=== PATIENT | female | born 1995 | race Hispanic/Latino ===

== ENCOUNTER 2018-12-01 22:49 | Emergency (ER) | payer BC, SELFPAY ==
[2018-12-01 23:45] LABS: Absolute Lymphocytes (CBC) 2.8 K/uL (0.7-4.9); Absolute Monocytes 0.6 K/uL (0.1-1.3); Absolute Neutrophil 6.1 K/uL (1.8-8.0); Basophils % 0.8 % (0-1.3); Eosinophils % 1.3 % (0-4.4); Hematocrit 42.5 % (36.0-45.0); Lymphocytes % 28.9 % (15.3-44.8); MPV 8.6 fL (7.6-11.3); Monocytes % 6.1 % (3.3-12.3); RBC Red Blood Cell Count 4.78 M/uL (3.86-4.86)
[2018-12-01] MEDS ORDERED: MAGNE/ALUM HYDROXD 30 ML UCUP ONE (23:55)
[2018-12-01] MEDS ORDERED: LIDOCAINE VISCOUS 2% SOLN 15 ML UDC ONE (23:56)
[2018-12-02 00:02] LABS: ALT/SGPT 43 U/L (12-78); AST/SGOT 25 U/L (15-37); Albumin 3.6 g/dL (3.4-5.0); Alkaline Phosphatase 178 U/L (45-117); BUN Blood Urea Nitrogen 12 mg/dL (7-18); Bicarbonate 26 mmol/L (21-32); Bilirubin Direct < 0.1 mg/dL (0-0.2); Bilirubin Total 0.3 mg/dL (0.2-1.0); Glucose Level 110 mg/dL (74-106); Lipase 108 U/L (73-393); Potassium 3.6 mmol/L (3.5-5.1); Protein, Total 7.4 g/dL (6.4-8.2); Sodium Level 142 mmol/L (136-145)
--- NOTE | 2018-12-02 00:50 | ER ---
Nurse's Notes [facility] Name: Marquita Gannon Age: 23 yrs Sex: Female : 1995 Arrival Date: 12/01/2018 Time: 22:50 Bed 23 Private MD: Diagnosis: Acute gastritis without bleeding Presentation: 12/01 22:59 Presenting complaint: Patient states: i have epigastric pain with nausea since Friday. mg2 i took pepto and was relieved for awhile. Transition of care: patient was not received from another setting of care. Onset of symptoms was November 29, 2018. Risk Assessment: Do you want to hurt yourself or someone else? Patient reports no desire to harm self or others. Initial Sepsis Screen: Does the patient meet any 2 criteria? No. Patient's initial sepsis screen is negative. Does the patient have a suspected source of infection? No. Patient's initial sepsis screen is negative. Care prior to arrival: Medication(s) given: toradol 30 mg IV. 22:59 Method Of Arrival: Ambulatory mg2 22:59 Acuity: EMEKA 3 mg2 Triage Assessment: 23:53 General: Appears in no apparent distress. comfortable, Behavior is calm, cooperative. mg2 Pain: Complains of pain in epigastrium Pain radiates to umbilical area Pain currently is 2 out of 10 on a pain scale. Quality of pain is described as aching, Pain began gradually, Is intermittent. EENT: No signs and/or symptoms were reported regarding the EENT system. Neuro: Level of Consciousness is awake, alert, obeys commands, Oriented to person, place, time, situation. Cardiovascular: Capillary refill < 3 seconds Patient's skin is warm and dry. Respiratory: Airway is patent Respiratory effort is even, unlabored, Respiratory pattern is regular, symmetrical. GI: Abdomen is round non-distended, Abd is soft and non tender Reports epigastric pain. : No signs and/or symptoms were reported regarding the genitourinary system. : Urine is clear. Derm: Skin is intact, is healthy with good turgor, Skin is pink, warm \T\ dry. normal. Musculoskeletal: Circulation, motion, and sensation intact. Capillary refill < 3 seconds. 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 - Social history:: Smoking status: Patient/guardian denies using tobacco, Patient uses alcohol, weekly. Patient/guardian denies using street drugs, IV drugs. - Ebola Screening: : No symptoms or risks identified at this time. Screenin:55 Abuse screen: Denies threats or abuse. Denies injuries from another. Nutritional mg2 screening: No deficits noted. Tuberculosis screening: No symptoms or risk factors identified. Fall Risk IV access (20 points). Assessment: 23:55 Reassessment: pls see triage assessment. mg2 23:56 GI: Bowel sounds present X 4 quads. Abd is soft and non tender. mg2 12/02 01:04 Reassessment: Patient denies pain at this time. Patient states feeling better. mg2 Vital Signs: 12/01 23:02 BP 112 / 68; Pulse 87; Resp 18; Temp 97.5(TE); Pulse Ox 100% on R/A; Weight 138.35 kg; mg2 Height 5 ft. 5 in. (165.10 cm); Pain 2/10; 12/02 01:04 BP 120 / 78; Pulse 80; Resp 18; Pulse Ox 100% on R/A; Pain 0/10; mg2 12/01 23:02 Body Mass Index 50.75 (138.35 kg, 165.10 cm) mg2 ED Course: 12/01 22:50 Patient arrived in ED. am2 22:50 Taye Del Cid RN is Primary Nurse. mg2 23:01 Joe Fisher PA is PHCP. jr8 23: Juan C Goodson MD is Attending Physician. jr8 23:02 Triage completed. mg2 23:04 Arm band placed on. mg2 23:55 No provider procedures requiring assistance completed. Inserted saline lock: 20 gauge mg2 in left antecubital area, using aseptic technique. Blood collected. 23:56 Patient has correct armband on for positive identification. Door closed. Warm blanket mg2 given. 12/02 00:49 Jaime Pa MD is Referral Physician. jr8 01:04 IV discontinued, intact, bleeding controlled, No redness/swelling at site. Pressure mg2 dressing applied. Administered Medications: 12/01 23:47 Drug: GI Cocktail without - (Maalox Suspension 30 ml, Lidocaine Liquid 2 % 15 mg2 ml) Route: PO; 12/02 00:09 Follow up: Response: No adverse reaction; Marked relief of symptoms mg2 Outcome: 00:49 Discharge ordered by MD. shelton 01:05 Discharged to home ambulatory, with family. mg2 01:05 Condition: improved 01:05 Discharge instructions given to patient, family, Instructed on discharge instructions, follow up and referral plans. medication usage, Demonstrated understanding of instructions, follow-up care, medications, Prescriptions given X 1. 01:05 Patient left the ED. mg2 Signatures: Joe Fisher PA PA jr8 Jenny Marx am2 Taye Del Cid, RN RN mg2 Corrections: (The following items were deleted from the chart) 12/01 23:57 22:59 Care prior to arrival: None. mg2 mg2
--- NOTE | 2018-12-02 00:50 | EDPHYS ---
Physician Documentation [facility] Name: Marquita Gannon Age: 23 yrs Sex: Female : 1995 Arrival Date: 12/01/2018 Time: 22:50 Bed 23 Private MD: ED Physician Juan C Goodson HPI: 12/01 23:28 This 23 yrs old Female presents to ER via Ambulatory with complaints of jr8 Abdominal Pain - radiating to back. 23:28 The patient presents with abdominal pain in the epigastric area. Onset: The jr8 symptoms/episode began/occurred acutely, 1 day(s) ago. The symptoms radiate to back. Associated signs and symptoms: Pertinent positives: nausea. The symptoms are described as burning. Modifying factors: The symptoms are alleviated by nothing, the symptoms are aggravated by nothing. Severity of pain: At its worst the pain was moderate in the emergency department the pain has improved mildly. The patient has not experienced similar symptoms in the past. The patient has not recently seen a physician. 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 - Social history:: Smoking status: Patient/guardian denies using tobacco, Patient uses alcohol, weekly. Patient/guardian denies using street drugs, IV drugs. - Ebola Screening: : No symptoms or risks identified at this time. ROS: 23:28 Eyes: Negative for injury, pain, redness, and discharge, ENT: Negative for injury, jr8 pain, and discharge, Neck: Negative for injury, pain, and swelling, Cardiovascular: Negative for chest pain, palpitations, and edema, Respiratory: Negative for shortness of breath, cough, wheezing, and pleuritic chest pain, Back: Negative for injury and pain, MS/Extremity: Negative for injury and deformity, Skin: Negative for injury, rash, and discoloration, Neuro: Negative for headache, weakness, numbness, tingling, and seizure. 23:28 Abdomen/GI: Positive for abdominal pain, nausea, Negative for vomiting, diarrhea, abdominal cramps, abdominal distension, anorexia, dysphagia, hematemesis, black/tarry stool, rectal pain, rectal bleeding, bowel incontinence, flatulence. Exam: 23:28 Eyes: Pupils equal round and reactive to light, extra-ocular motions intact. Lids and jr8 lashes normal. Conjunctiva and sclera are non-icteric and not injected. Cornea within normal limits. Periorbital areas with no swelling, redness, or edema. ENT: Nares patent. No nasal discharge, no septal abnormalities noted. Tympanic membranes are normal and external auditory canals are clear. Oropharynx with no redness, swelling, or masses, exudates, or evidence of obstruction, uvula midline. Mucous membranes moist. Neck: Trachea midline, no thyromegaly or masses palpated, and no cervical lymphadenopathy. Supple, full range of motion without nuchal rigidity, or vertebral point tenderness. No Meningismus. Cardiovascular: Regular rate and rhythm with a normal S1 and S2. No gallops, murmurs, or rubs. Normal PMI, no JVD. No pulse deficits. Respiratory: Lungs have equal breath sounds bilaterally, clear to auscultation and percussion. No rales, rhonchi or wheezes noted. No increased work of breathing, no retractions or nasal flaring. Back: No spinal tenderness. No costovertebral tenderness. Full range of motion. Skin: Warm, dry with normal turgor. Normal color with no rashes, no lesions, and no evidence of cellulitis. MS/ Extremity: Pulses equal, no cyanosis. Neurovascular intact. Full, normal range of motion. Neuro: Awake and alert, GCS 15, oriented to person, place, time, and situation. Cranial nerves II-XII grossly intact. Motor strength 5/5 in all extremities. Sensory grossly intact. Cerebellar exam normal. Normal gait. 23:28 Abdomen/GI: Inspection: abdomen appears normal, Bowel sounds: active, all quadrants, Palpation: soft, in all quadrants, nontender, in the umbilical area, suprapubic area, right upper quadrant, left upper quadrant, right lower quadrant and left lower quadrant, mild abdominal tenderness, in the epigastric area, mass, is not appreciated, rebound tenderness, is not appreciated, voluntary guarding, is not appreciated, involuntary guarding, is not appreciated, no appreciated organomegaly, Indicators: McBurney's point is not tender, Leon's sign is negative, Rovsing's sign is negative, Liver: tenderness, is not appreciated. Vital Signs: 23:02 BP 112 / 68; Pulse 87; Resp 18; Temp 97.5(TE); Pulse Ox 100% on R/A; Weight 138.35 kg; mg2 Height 5 ft. 5 in. (165.10 cm); Pain 2/10; 12/02 01:04 BP 120 / 78; Pulse 80; Resp 18; Pulse Ox 100% on R/A; Pain 0/10; mg2 12/01 23:02 Body Mass Index 50.75 (138.35 kg, 165.10 cm) mg2 MDM: 12/01 23:01 Patient medically screened. [facility] 12/02 00:48 Data reviewed: vital signs, nurses notes, lab test result(s). Data interpreted: Pulse 8 oximetry: on room air is 100 %. Interpretation: normal. 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 Response to treatment: the patient's symptoms have resolved after treatment. 12/01 23:03 Order name: Basic Metabolic Panel; Complete Time: 00:12/01 23:03 Order name: CBC with Diff; Complete Time: 00:12/01 23:03 Order name: Creatinine for Radiology; Complete Time: 00:12/01 23:03 Order name: Hepatic Function; Complete Time: 00:12/01 23:03 Order name: Lipase; Complete Time: 00:30 12/01 23:26 Order name: Urine Dipstick--Ancillary (enter results) mw2 12/01 23:03 Order name: IV Saline Lock; Complete Time: 23:12/01 23:03 Order name: Labs collected and sent; Complete Time: 23:12/01 23:03 Order name: Urine Test (obtain specimen); Complete Time: 23:12/01 23:03 Order name: Urine Dipstick-Ancillary (obtain specimen); Complete Time: :12/01 23:26 Order name: Urine --Ancillary (enter results) mw2 Administered Medications: 12/01 23:47 Drug: GI Cocktail without - (Maalox Suspension 30 ml, Lidocaine Liquid 2 % 15 mg2 ml) Route: PO; 12/02 00:09 Follow up: Response: No adverse reaction; Marked relief of symptoms mg2 Disposition: 06:24 Co-signature as Attending Physician, Juan C Goodson MD I agree with the assessment and tw4 plan of care. Disposition: 12/02/18 00:49 Discharged to Home. Impression: Acute gastritis without bleeding. - Condition is Stable. - Discharge Instructions: Food Choices for Gastroesophageal Reflux Disease, Adult, Gastritis, Adult, Gastroesophageal Reflux Disease, Adult. - Prescriptions for omeprazole 40 mg Oral capsule,delayed release(DR/EC) - take 1 capsule by ORAL route once daily before a meal; 30 capsule. - Medication Reconciliation Form, Thank You Letter, Antibiotic Education, Prescription Opioid Use form. - Follow up: Jaime Pa MD; When: 5 - 6 days; Reason: Recheck today's complaints, Continuance of care, Re-evaluation by your physician. - Problem is new. - Symptoms have improved. Signatures: Dispatcher [employer] EDMS Joe Fisher PA PA jr8 Juan C Goodson MD MD tw4 Taye Del Cid RN RN mg2 Corrections: (The following items were deleted from the chart) 01:05 00:49 12/02/2018 00:49 Discharged to Home. Impression: Acute gastritis without mg2 bleeding. Condition is Stable. Forms are Medication Reconciliation Form, Thank You Letter, Antibiotic Education, Prescription Opioid Use. Follow up: Jaime Pa; When: 5 - 6 days; Reason: Recheck today's complaints, Continuance of care, Re-evaluation by your physician. Problem is new. Symptoms have improved. jr8
[2018-12-02 01:36] LABS: Urine Blood 1+ (NEG); Urine Glucose NEGATIVE (NEG); Urine Protein NEGATIVE (NEG); Urine Specific Gravity 1.025 (1.005-1.030)
[2018-12-02 02:23] VITALS: TEMP 97.5; O2SAT 100
[2018-12-02 02:24] VITALS: BP 120/78
== END 2018-12-02 01:05 | disposition home or self-care (01) ==
LOC: ER 22:49
DX: K29.00 Acute gastritis without bleeding (principal)
CPT/HCPCS: 36415; 80048; 80076; 81003; 81025; 83690; 85025; 99284

== ENCOUNTER 2019-06-27 17:08 | Emergency (ER) | payer BC ==
--- OUTSIDE RECORDS SUMMARY | 2019-06-27 17:10 | XMS REPORT ---
:1995 [facility] Address [address] [place] [address] Dr. Albright [address] [place] [id number] Care Team Providers Name Role Phone Unavailable Unavailable Unavailable Problems This patient has no known problems. Allergies, Adverse Reactions, Alerts This patient has no known allergies or adverse reactions. Medications This patient has no known medications.
--- OUTSIDE RECORDS SUMMARY | 2019-06-27 17:11 | XMS REPORT | Summary of Care ---
:1995 Author Organization [facility] Address [address] [place] [id number] Care Team Providers Name Role Phone Latisha Campbell [facility] Primary Care Provider Reason for Visit Reason Comments Well Woman Exam Encounter Details Date Type Department Care Team Description 05/04/2019 Office Visit [facility]- Latisha Campbell, Well woman exam (Primary Dx); [facility] Screen for STD (sexually transmitted disease); [address] Breakthrough bleeding on Nexplanon; [place], [place] Georgi A BMI 40.0-44.9, adult; [id number] [place] [id number] Candidiasis of skin [phone] Allergies No Known Allergiesdocumented as of this encounter (statuses as of 05/04/2019) Medications Medication Sig Dispensed Refills Start Date End Date Status estradiol 2 mg Take 1 tablet by 21 tablet 0 05/04/2019 05/25/2019 Active tabletIndications: mouth daily for Breakthrough bleeding 21 days. on Nexplanon documented as of this encounter (statuses as of 05/04/2019) Active Problems Problem Noted Date Nexplanon in place 01/13/2018 Nexplanon insertion 05/08/2017 Overview: Removal date 05/08/20 Morbid obesity, unspecified obesity type 04/23/2017 documented as of this encounter (statuses as of 05/04/2019) Resolved Problems Problem Noted Date Resolved Date Well woman exam with routine gynecological exam 04/23/2017 04/28/2018 Other general counseling and advice for contraceptive 04/23/2017 04/28/2018 management Need for HPV vaccine 04/23/2017 05/04/2019 documented as of this encounter (statuses as of 05/04/2019) Immunizations Name Administration Dates Next Due HPV9 02/24/2019, 04/28/2018, 04/23/2017 Meningococcal Polysaccharide (groups A, 03/06/2016 C, Y and W-135) conjugate vaccine (MCV4P) Tdap 10/06/2011 documented as of this encounter Social History Tobacco Use Types Packs/Day Years Used Date Never Smoker Smokeless Tobacco: Never Used Alcohol Use Drinks/Week oz/Week Comments Yes socially Sex Assigned at Date Recorded Not on file Job Start Date Occupation Industry Not on file Not on file Not on file Travel History Travel Start Travel End No recent travel history available. documented as of this encounter Last Filed Vital Signs Vital Sign Reading Time Taken Comments Blood Pressure 101/69 05/04/2019 9:21 AM CDT Pulse 72 05/04/2019 9:21 AM CDT Temperature 36.5 C (97.7 F) 05/04/2019 9:21 AM CDT Respiratory Rate 16 05/04/2019 9:21 AM CDT Oxygen Saturation - - Inhaled Oxygen Concentration - - Weight 119.9 kg (264 lb 4 oz) 05/04/2019 9:21 AM CDT Height 165.1 cm (5' 5") 05/04/2019 9:21 AM CDT Body Mass Index 43.97 05/04/2019 9:21 AM CDT documented in this encounter Patient Instructions Patient InstructionsSobeida Lu LVN - 05/04/2019 8:45 AM CDT Clinical Breast Exam Many health organizations recommend a yearly clinical breast exam. This exam may be done by a public health inspector, family healthcare provider, nurse practitioner, nurse herpetologist, or specially trained nurse. Yearly breast exams help tomake surethat breast conditions are found early. Your healthcare providers role A healthcare professional knows the tests and follow-up care needed if a problem is found. Your clinical exam is also a great time to ask questions about breast self-exams. You can find out if yourechecking your breasts in the best way. Or you may want to ask how , breast implants, or breast reduction surgery affect the way you should check your breasts. Diagnostic tests If a clinical exam reveals a breast change, you may have other tests to find out more. These tests may include: Mammography. A low-dose X-ray of your breast tissue. Ultrasound. An imaging test that uses sound waves to create images of your breast. Biopsy. A small amount of breast tissue is removed by needle or by a cut ( incision). The tissue is then checked under a microscope. Guidelines for having clinical breast exams The [employer] recommends that starting at age 29, you should have a clinical breast exam every 1 to 3 years. After age 40, have a clinical breast exam each year. If youre at higher risk for breast cancer, you may need exams more often. Risk factors for breast cancer may include: Being over 50 or postmenopausal Having a family history of breast cancer Having the BRCA1 or BRCA2 gene mutation or certain other gene mutations Having more menstrual periods due to starting menstruation early(before age 12) or having a late menopause (after age 55) Having no pregnancies Having a first after age 30 Being obese Having a history of radiation treatment to your chest area Exposure to JERONIMO during your mother's Not being active Drinking too much alcohol Having dense breast tissue Taking hormone therapy after menopause Other health organizations have different recommendations. Talk with your healthcare provider about what is best for you. Date Last Reviewed: 05/06/201719997650-4612 The [employer]. [address] [place] [address]. All rights reserved. This information is not intended as a substitute for professional medical care. Always follow your healthcare professional's instructions. Breast Health: Breast Self-Awareness What is breast self-awareness? Breast self-awareness is knowing how your breasts normally look and feel. Your breasts change as yougo through different stages of your life. So its important to learn what is normal for your breasts. Breast self-awareness helps you notice any changes in your breasts right away. Report any changesto your healthcare provider. Why is breast self-awareness important? Many experts now say that women should focus on breast self-awareness instead of doing a breast self-examination (BSE). These experts include the [employer], the U.S. Preventive Services Task Force, and the [employer]. Some experts even advise notteaching women to do a BSE. Thats because research hasnt shown a clear benefit to doing BSEs. Breast self-awareness is different than a BSE. Breast self-awareness isnt about following a certain method and schedule. Its about knowing what's normal for your breasts. That way you can notice even small changes right away. If you see any changes, report them to your healthcare provider. Changes to look for Call your healthcare provider if you find any changes in your breasts that concern you. These changes may include: A lump Nipple discharge other than breastmilk, especially a bloody discharge Swelling A change in size or shape Skin irritation, such as redness, thickening, or dimpling of the skin Swollen lymph nodes in the armpit Nipple problems, such as pain or redness If you find a lump Contact your provider if you find lumpiness in one breast, feel something different in the tissue, or feel a definite lump. Sometimes lumpiness may be due to menstrual changes. But there may be reason for concern. Your provider may want to see you right away if you have: Nipple discharge that is bloody Skin changes on your breast, such as dimpling or puckering Its normal to be upset if you find a lump. But its important to contact your provider right away. Remember that most breast lumps are benign. This means they are not cancer. Date Last Reviewed: 05/06/201719993370-8153 [employer]. [address] [place] [address], [place] [address]. All rights reserved. This information is not intended as a substitute for professional medical care. Always follow your healthcare professional's instructions. Prevention Guidelines,Women Ages 18 to 39 Screening tests and vaccines are an important part of managing your health. A screening test is doneto find possible disorders or diseases in people who don' t have any symptoms. The goal is to find a disease early so lifestyle changes can be made and you can be watched more closely to reduce the riskof disease, or to detect it early enough to treat it most effectively. Screening tests are not considered diagnostic, but are used to determine if more testing is needed. Health counseling is essential, too. Below are guidelines for these, for women ages 18 to 39. Talk with your healthcare provider tomake sure youre up-to- date on what you need. Screening Who needs it How often Alcohol misuse All women in this age group At routine exams Blood pressure All women in this age group Yearly checkup if your blood pressure is normal Normal blood pressure is less than 120/80 mm Hg If your blood pressure reading is higher than normal, follow the advice of your healthcare provider Breast cancer All women in this age group should talk with their healthcare providers about the needfor clinical breast exams (CBE)1 Clinical breast exam every 3 years1 Cervical cancer Women ages 21 and older Women between ages 21 and 29 should have a Pap test every 3 years; women between ages 30 and 65 are advised to have a Pap test plus an HPV test every 5 years Chlamydia Sexually active women ages 25 and younger, and women at increased risk for infection (suchas having multiple sex partners) Every year if you're at risk or have symptoms Depression All women in this age group At routine exams Type 2 diabetes, prediabetes All women with no symptoms who are overweight or obese and have 1 or more other risk factors for diabetes At least every 3 years. Also, testing for diabetes during after the 24th week. Type 2 diabetes, prediabetes All women diagnosed with gestational diabetes Lifelong testing every 3 years Type 2 diabetes All women with prediabetes Every year Gonorrhea Sexually active women at increased risk for infection At routine exams Hepatitis C Anyone at increased risk At routine exams HIV All women should be tested at least once for HIV between the ages of 13 and 64 At routine exams.Those with risk factors for HIV should be tested at least annually. Obesity All women in this age group At routine exams Syphilis Women at increased risk for infection should talk with their healthcare provider At routineexams Tuberculosis Women at increased risk for infection should talk with their healthcare provider Ask your healthcare provider Vision All women in this age group At least 1 complete exam in your 20s, and 2 in your 30s Vaccine2 Who needs it How often Chickenpox (varicella) All women in this age group who have no record of this infection or vaccine 2doses; the second dose should be given 4 to 8 weeks after the first dose Hepatitis A Women at increased risk for infection should talk with their healthcare provider 2 dosesgiven at least 6 months apart Hepatitis B Women at increased risk for infection should talk with their healthcare provider 3 dosesover 6 months; second dose should be given 1 month after the first dose; the third dose should be given at least 2 months after the second dose and at least 4 months after the first dose Haemophilus influenzaeType B (HIB) Women at increased risk for infection should talk with their healthcare provider 1 to 3 doses Human papillomavirus (HPV) All women in this age group up to age 26 3 doses; the second dose should be given 1 to 2 months after the first dose and the third dose given 6 months after the first dose Influenza (flu) All women in this age group Once a year Measles, mumps, rubella (MMR) All women in this age group who have no record of these infections or vaccines 1 or 2 doses Meningococcal Women at increased risk for infection should talk with their healthcare provider 1 or more doses Pneumococcal conjugate vaccine (PCV13)and pneumococcal polysaccharide vaccine(PPSV23) Women at increased risk for infection should talk with their healthcare provider PCV13: 1 dose ages 19 to 65 (protects against 13 types of pneumococcal bacteria) PPSV23: 1 to2 doses through age 64, or 1 dose at 65 or older (protects against 23 types of pneumococcal bacteria) Tetanus/diphtheria/pertussis (Td/Tdap) booster All women in this age group Td every 10 years, or a one-time dose of Tdap instead of a Td booster after age 18 , then Td every 10 years Counseling Who needs it How often BRCA gene mutation testing for breast and ovarian cancer susceptibility Women with increased risk for having gene mutation When your risk is known Breast cancer and chemoprevention Women at high risk for breast cancer When your risk is known Diet and exercise Women who are overweight or obese When diagnosed, and then at routine exams Domestic violence Women at the age in which they are able to have children At routine exams Sexually transmitted infection prevention Women who are sexually active At routine exams Skin cancer Prevention of skin cancer in fair-skinned adults At routine exams Use of tobacco and the health effects it can cause All women in this age group Every visit 1 According to the ACS, women ages 20 to 39 years should have a clinical breast exam (CBE) as part of their routine health exam every 3 years. Breast self- exams are an option for women starting in their 20s.But the USPSTF does not recommend CBE. Date Last Reviewed: 07/06/201719991529-3117 [employer]. [address] [place] [address], [place] [address]. All rights reserved. This information is not intended as a substitute for professional medical care. Always follow your healthcare professional's instructions. Understanding STDs When it comes to sex, nothing is risk-free. Any sexual contact with the penis, vagina, anus, or mouth can spread a sexually transmitted disease (STD). The only sure way to prevent STDs is abstinence (not having sex). But there are ways to make sex safer. Use a latex condom each time you have sex. And choose your partner wisely. Use condoms for safer sex If you have sex, latex condoms provide the best protection against STDs. Latex condoms stop the exchange of body fluids that carry certain STDs. They also limit contact with affected skin. Be aware though, a condom doesnt cover all skin. So, affected skin that is not covered can still transfer disease. But you re safer with a condom than without one. Use a condom even if you use other control. While control methods like the pill or IUD help prevent , they do not protect against STDs. Choose the right condom Condoms made of latex prevent disease best. If youre allergic to latex, use polyurethane condoms instead. Male condoms fit over the penis. Female condoms line the vagina. Before buying a condom, read the label to be sure it prevents disease. Some novelty condoms dont. The right lubricant helps Buy lubricated condoms or use lubricant. This provides greater comfort and reduces the risk of condom breakage. Use only water-based lubricants. Dont use oil, lotion, or petroleum jelly. They can weaken the condom, causing breakage. Also, you may want to choose lubricants without nonoxynol-9. Its now known that this spermicide does not prevent disease and may cause irritation. Use condoms correctly For condoms to work, they must be used the right way. Keep these tips in mind: Use a new latex condom each time you have sex. Slip the condom on the penis before any contact ismade. When ready to withdraw, hold the rim of the condom as the penis pulls out. This prevents the condom from slipping off. Check the expiration date before using a condom. Dont store condoms in places that can get hot, such as a car or a wallet that is carried in a back pocket. Get to know your partner Safer sex is a process. It involves getting to know your partner and making informed choices. Ask each other how many partners you have had in the past, and how many you have now. Find out if either ofyou has an STD. If you decide to have sex, use a condom each time. Dont stop using condoms unlessyoure sure neither of you has other partners and youve both been tested to confirm you donthave STDs. Then stay free of disease by having sex only with each other (monogamy). Keep your cool Dont let alcohol or drugs cloud your judgment. They could lead you to have sex with someone you wouldnt have chosen if you were sober. Or, you might forget to use a condom. If you do plan to havesex, keep a latex condom with you. Dont wait until youre in the heat of passion to try to findone. Consider abstinence The only way to be sure you wont get an STD is to abstain from sex. Abstinence is a choice that many people make at some point in their lives. Maybe you want to wait until you are sure youre ready before you have sex. Maybe youd like a break from the responsibilities of sex for a while. Or maybe you just want to know your partner better before taking the next step. Abstinence is a choice youcan make now to protect your future. Date Last Reviewed: 09/05/201619990387-7713 [employer]. [address] [place] [address]. All rights reserved. This information is not intended as a substitute for professional medical care. Always follow your healthcare professional's instructions. Understanding HIV and AIDS If you know how HIV (human immunodeficiency virus) can get into your body and what happens once its there, youll be better prepared to protect yourself or others against this virus. A person withHIV can look and feel perfectly healthy. But that person can give HIV to others as soon as he or sheis infected with the virus. Note: Having unsafe or unprotected sex or sharing needles put you at risk for HIV. Talk with your healthcare provider about ways to protect yourself or a loved one from getting HIV. How HIV enters the body HIV is carried in semen, vaginal fluid, blood, and breast milk. During sex, HIV can enter the body through the fragile tissue that lines the vagina, penis, anus,and mouth. During drug use, tattooing, or body piercing, the virus can enter the bloodstream through a shared needle. A mother who has HIV can infect her child during childbirth and through . How HIV infection progresses After HIV enters the body, it attacks the immune system in stages. A person with HIV can infect others once the virus enters the bloodstream. HIV with no symptoms. A person with HIV may have no symptoms for years. A positive blood test for HIV antibodies 6 weeks to 6 months after HIV enters the body may be the only sign of infection. HIV with symptoms.Some people develop an illness similar to mononucleosis (or "mono") 2 to 4 weeksafter the virus enters the body. Symptoms may include swollen lymph glands, chills, fever, night sweats, weakness, weight loss, skin rashes, mouth ulcers, or sore throat. Symptoms may be mild at first and then slowly go away. In a very few individuals, symptoms may get progressively worse and last forlonger and longer periods. AIDS. AIDS is the last stage of HIV infection. Diseases and cancers begin to overcome the body. It is these diseases, not the virus itself, that cause . HIV may also attack the brain and nervous system, causing seizures and loss of memory and body movement. Date Last Reviewed: 08/06/201619992923-[address] [employer] [place] [address]. All rights reserved. This information is not intended as a substitute for professional medical care. Always follow your healthcare professional's instructions. Eating Heart-Healthy Foods Eating has a big impact on your heart health. In fact, eating healthier can improve several of your heart risks at once. For instance, it helps you manage weight, cholesterol, and blood pressure. Here are ideas to help you make heart- healthy changes without giving up allthe foods and flavors you love. Getting started Talk with your healthcare provider about eating plans, such as the DASH or Mediterranean diet. You may also be referred to a dietitian. Change a few things at a time. Give yourself time to get used to a few eating changes before adding more. Work to create a tasty, healthy eating plan that you can stick to for the rest of your life. Goals for healthy eating Below are some tips to improve your eating habits: Limit saturated fats and trans fats. Saturated fats raise your levels of cholesterol, so keep these fats to a minimum. They are found in foods such as fatty meats, whole milk, cheese, and palm and coconut oils. Avoid trans fats because they lower good cholesterol as well as raise bad cholesterol. Trans fats are most often found in processed foods. Reduce sodium (salt) intake. Eating too much salt may increase your blood pressure. Limit your sodium intake to 2,300 milligrams (mg) per day(the amount in 1 teaspoon of salt), or less if your healthcare provider recommends it. Dining out less often and eating fewer processed foods are two great ways to decrease the amount of salt you consume. Managing calories. A calorie is a unit of energy. Your body sawyer calories for fuel, but if you eat more calories than your body sawyer, the extras are stored as fat. Your healthcare provider can help you create a diet plan to manage your calories. This will likely include eating healthier foods as well as exercising regularly. To help you track your progress, keep a diary to record what you eat and how often you exercise. Choose the right foods Aim to make these foods nam of your diet. If you have diabetes, you may have different recommendations than what is listed here: Fruits and vegetables provide plenty of nutrients without a lot of calories. At meals, fill half your plate with these foods. Split the other half of your plate between whole grains and lean protein. Whole grains are high in fiber and rich in vitamins and nutrients. Good choices include whole-wheat bread, pasta, and brown rice. Lean proteins give you nutrition with less fat. Good choices include fish, skinless chicken, and beans. Low-fat or nonfat dairy provides nutrients without a lot of fat. Try low-fat or nonfat milk, cheese, or yogurt. Healthy fats can be good for you in small amounts. These are unsaturated fats , such as olive oil,nuts, and fish. Try to have at least 2 servings per week of fatty fish, such as salmon, sardines, mackerel, rainbow trout, and albacore tuna. These contain omega-3 fatty acids, which are good for your heart. Flaxseed is another source of a heart-healthy fat. More on heart-healthy eating Read food labels Healthy eating starts at the grocery store. Be sure to pay attention to food labels on packaged foods. Look for products that are high in fiber and protein, and low in saturated fat, cholesterol, and sodium. Avoid products that contain trans fat. And pay close attention to serving size. For instance, if you plan to eat two servings, double all the numbers on the label. Prepare food right A owens part of healthy cooking is cutting down on added fat and salt. Look on the internet for lower-fat, lower-sodium recipes. Also, try these tips: Remove fat from meat and skin from poultry before cooking. Skim fat from the surface of soups and sauces. Broil, boil, bake, steam, grill, and microwave food without added fats. Choose ingredients that spice up your food without adding calories, fat, or sodium. Try these items: horseradish, hot sauce, lemon, mustard, nonfat salad dressings, and vinegar. For salt-free herbs and spices, try basil, cilantro, cinnamon, pepper, and yamile. Date Last Reviewed: 07/06/201719994294-[address] [employer] [place] [address], [place] [address]. All rights reserved. This information is not intended as a substitute for professional medical care. Always follow your healthcare professional's instructions. Clinical Breast Exam Many health organizations recommend a yearly clinical breast exam. This exam may be done by a public health inspector, family healthcare provider, nurse practitioner, nurse herpetologist, or specially trained nurse. Yearly breast exams help tomake surethat breast conditions are found early. Your healthcare providers role A healthcare professional knows the tests and follow-up care needed if a problem is found. Your clinical exam is also a great time to ask questions about breast self-exams. You can find out if yourechecking your breasts in the best way. Or you may want to ask how , breast implants, or breast reduction surgery affect the way you should check your breasts. Diagnostic tests If a clinical exam reveals a breast change, you may have other tests to find out more. These tests may include: Mammography. A low-dose X-ray of your breast tissue. Ultrasound. An imaging test that uses sound waves to create images of your breast. Biopsy. A small amount of breast tissue is removed by needle or by a cut ( incision). The tissue is then checked under a microscope. Guidelines for having clinical breast exams The [employer] recommends that starting at age 29, you should have a clinical breast exam every 1 to 3 years. After age 40, have a clinical breast exam each year. If youre at higher risk for breast cancer, you may need exams more often. Risk factors for breast cancer may include: Being over 50 or postmenopausal Having a family history of breast cancer Having the BRCA1 or BRCA2 gene mutation or certain other gene mutations Having more menstrual periods due to starting menstruation early(before age 12) or having a late menopause (after age 55) Having no pregnancies Having a first after age 30 Being obese Having a history of radiation treatment to your chest area Exposure to JERONIMO during your mother's Not being active Drinking too much alcohol Having dense breast tissue Taking hormone therapy after menopause Other health organizations have different recommendations. Talk with your healthcare provider about what is best for you. Date Last Reviewed: 05/06/201719994706-[address] [employer] [place] [address]. All rights reserved. This information is not intended as a substitute for professional medical care. Always follow your healthcare professional's instructions. documented in this encounter Progress Notes Sobeida Lu LVN - 05/04/2019 8:45 AM CDT23 year old presented to the clinic for WWE. 1) Previous BCM: nexplanon 2) Desired BCM: condoms 3) LMP:05/02/2019 4) Last [place]:04/26/2019 5) Last Pap:n/a Results: N/a 6) Tdap in last 10 years?10/06/2011 HPV?completed 02/21 7) C/O Irregular menses since 02/21. 8) Patient denies history of physical, emotional, or sexual abuse. Patient states she currently feels safe at home. YNTLatisha Campbell FNP - 05/04/2019 8:45 AM CDT Chief complaint: Chief Complaint Patient presents with Well Woman Exam HPI Here for Well Woman Exam and contraceptive management. Patient desires to continue nexplanon for contraception. She does complain of irregular bleeding x 3 months, desires trial of estradiol prior to deciding on removal. Nexplanon inserted 05/2017. Reviewed risks/benefits/alternative contraceptive methods. Denies cramps, vaginal discharge, genital lesions, breast pain and vaginal pain. Desires STD testing. Pt reports no past or present history of physical, sexual, and emotional abuse. Rubella: immune 2017 VZV: unknown, deferred BMI: Body mass index is 43.97 kg/m. Td: 2011 Pap Smear: due today Gardasil: completed 2019 Mammogram:N/A Guaiac:N/A Colonoscopy:N/A Histories OB History Para Term AB Living 0 0 0 0 0 0 SAB TAB Ectopic Multiple Live Births 0 0 0 0 No past medical history on file. Family History Problem Relation Age of Onset Neurological Mother No Significant Medical Problems Father Other - see comments Brother gall bladder/ appendix removed No Significant Medical Problems Maternal Aunt No Significant Medical Problems Maternal Uncle No Significant Medical Problems Paternal Aunt No Significant Medical Problems Paternal Uncle No Significant Medical Problems Maternal Grandmother No Significant Medical Problems Maternal Grandfather No Significant Medical Problems Paternal Grandmother No Significant Medical Problems Paternal Grandfather Arthritis NoFHx defects NoFHx Asthma NoFHx Ovarian Cancer NoFHx Colon Cancer NoFHx Breast Cancer NoFHx Uterine Cancer NoFHx Cancer NoFHx Diabetes NoFHx Depression NoFHx Genetic NoFHx Heart NoFHx High cholesterol NoFHx Hypertension NoFHx Mental retardation NoFHx Osteoporosis NoFHx Psychiatry NoFHx Family Status Relation Name Status Mo Alive Fa Alive Bro Alive MAunt Alive MUnc Alive PAunt Alive PUnc Alive MGMo Alive MGFa Alive PGMo Alive PGFa Alive NoFHx (Not Specified) No past surgical history on file. Social History Socioeconomic History Marital status: Single Spouse name: Not on file Number of children: Not on file Years of education: Not on file Highest education level: Not on file Occupational History Not on file Social Needs Financial resource strain: Not on file Food insecurity: Worry: Not on file Inability: Not on file Transportation needs: Medical: Not on file Non-medical: Not on file Tobacco Use Smoking status: Never Smoker Smokeless tobacco: Never Used Substance and Sexual Activity Alcohol use: No Comment: socially Drug use: No Sexual activity: Yes Partners: Male control/protection: Condom, Implant Comment: last sexual intercourse 04/24/2018 Lifestyle Physical activity: Days per week: Not on file Minutes per session: Not on file Stress: Not on file Relationships Social connections: Talks on phone: Not on file Gets together: Not on file Attends tenriism service: Not on file Active member of club or organization: Not on file Attends meetings of clubs or organizations: Not on file Relationship status: Not on file Intimate partner violence: Fear of current or ex partner: Not on file Emotionally abused: Not on file Physically abused: Not on file Forced sexual activity: Not on file Other Topics Concern Not on file Social History Narrative Pt denies current or past physical, sexual or emotional abuse. Pt states she feels safe at home. Pt lives with Father. Spiritism preference none. Social History Substance and Sexual Activity Sexual Activity Yes Partners: Male control/protection: Condom, Implant Comment: last sexual intercourse 04/24/2018 Labs Labs are pending. Radiology No new radiology. Allergies Marquita has No Known Allergies. Medications Marquita currently has no medications in their medication list. Review of Systems Constitutional: Negative. HENT: Negative. Eyes: Negative. Respiratory: Negative. Breasts: Negative. Cardiovascular: Negative. Gastrointestinal: Negative. Genitourinary: Negative. Musculoskeletal: Negative. Skin: Negative. Neurological: Negative. Psychiatric/Behavioral: Negative. Endocrine: Endocrine negative BP 101/69 (BP Location: Right arm, Patient Position: Sitting, BP CUFF SIZE: Adult Small) | Pulse 72 | Temp 36.5 C (97.7 F) (Oral) | Resp 16 | Ht 5' 5 " (1.651 m) | Wt 264 lb 4 oz (119.9 kg) | LMP 04/24/2019 (Approximate) | BMI 43.97 kg/m Pregravid BMI: Could not be calculated Physical Exam Vitals reviewed. Constitutional: She is oriented to person, place, and time. She appears well- developed and well-nourished. Her body habitus is obese. Neck: No thyroid nodules and no thyromegaly palpated. Cardiovascular: Regular rate and rhythm. No murmur auscultated. Pulmonary/Chest: Breath sounds clear to auscultation. Normal inspiratory effort. Abdominal: Abdomen is soft. No mass palpated. No tenderness present. There is no hepatosplenomegaly. Neuro/Psychiatric: She has a normal mood and affect. She is oriented to person, place, and time. Skin: Skin normal. No lesion and no rash present. External genitalia: Normal external genitalia appropriate for age. No labial lesion. Flat, erythematous rash in inguinal region c/w candidiasis Bladder: No tenderness. Normal bladder Vagina:Normal vagina. No lesion inspected. No abnormal vaginal discharge found. Cervix: Normal cervix. No lesion. No tenderness and no discharge present. Uterus: Uterus is normal size, normal position and non-tender. Normal uterus Adnexa: Right adnexa without tenderness. Left adnexa without tenderness. Normal left adnexa and normal right adnexa Assessment/Plan 1. Well woman exam Educated patient regarding self breast awareness. SBE monthly. Patient advised mammograms to begin at age 40 Encourage green leafy vegetables, lean meats and fruit in diet. Avoid fatty, fried, sugary foods. Increase H2O intake (1/2 body weight in ozs). Exercise 30 minutes daily x 7 days/week as tolerated. Follow up 1 year - PAP Smear-Liquid Based 2. Screen for STD (sexually transmitted disease) Reviewed safe sex practices - GC & CHLAMYDIA AMPLIFIED ASSAY - TRICHOMONAS AMPLIFIED ASSAY - HIV 1/2 AG-AB WITH REFLEX - GALV ONLY - SYPHILIS IGG/IGM 3. Breakthrough bleeding on Nexplanon Desires trial of estradiol prior to deciding on removal. RTC in 1 month for f/u - estradiol 2 mg tablet; Take 1 tablet by mouth daily for 21 days. Dispense: 21 tablet; Refill: 0 4. BMI 40.0-44.9, adult The patient is asked to make an attempt to improve diet and exercise patterns to aid in medical management of this problem. 5. Candidiasis of skin Recommend OTC clotrimazole cream Discussed treatment options. Reviewed patient instructions and provided printed copy. This visit did not involve counseling and coordination that comprised more than 50% of the visit time. documented in this encounter Plan of Treatment Name Type Priority Associated Diagnoses Date/Time PAP Smear-Liquid Based LAB Routine Well woman exam 05/04/2019 9:50 AM CDT GC & CHLAMYDIA AMPLIFIED LAB Routine Screen for STD (sexually 05/04/2019 9 :50 AM ASSAY transmitted disease) CDT TRICHOMONAS AMPLIFIED LAB Routine Screen for STD (sexually 05/04/2019 9: 50 AM ASSAY transmitted disease) CDT Name Type Priority Associated Diagnoses Order Schedule HIV 1/2 AG-AB WITH LAB Routine Screen for STD (sexually Ordered: 05/04/2019 REFLEX transmitted disease) GALV ONLY - SYPHILIS LAB Routine Screen for STD (sexually Ordered: 2018 IGG/IGM transmitted disease) Health Maintenance Due Date Last Done Comments MENINGOCOCCAL B VACCINES (1 2007 of 2 - Risk Bexsero 2-dose series) PAP SMEAR 2018 CHLAMYDIA SCREENING 04/28/2019 04/28/2018, 07/29/2017, 04/23/2017 INFLUENZA VACCINE 06/06/2019 DTaP,Tdap,and Td Vaccines (2 10/06/2021 10/06/2011 - Td) MENINGOCOCCAL VACCINE Completed 03/06/2016 HPV VACCINES Completed 02/24/2019, 04/28/2018, 04/23/2017 PNEUMOCOCCAL 0-64 YEARS Aged Out No longer eligible COMBINED SERIES based on patient's age to complete this topic VARICELLA VACCINES Discontinued documented as of this encounter Results Not on filedocumented in this encounter Visit Diagnoses Diagnosis Well woman exam - Primary Routine general medical examination at a health care facility Screen for STD (sexually transmitted disease) Screening examination for venereal disease Breakthrough bleeding on Nexplanon Metrorrhagia BMI 40.0-44.9, adult Body Mass Index 40.0-44.9, adult Candidiasis of skin Candidiasis of skin and nails documented in this encounter Insurance Payer Benefit Plan Subscriber ID Effective Dates Phone Address Type / Group [facility] [id number] 2017-Lisa [phone] [address] PPO/POS [facility] [id number] [place] [address] documented as of this encounter Advance Directives Name Relationship Healthcare Agent Relationship Communication Tanya Jagdeep Mother Primary healthcare agent
--- OUTSIDE RECORDS SUMMARY | 2019-06-27 17:11 | XMS REPORT | Summary of Care ---
:1995 Author Organization [facility] - Health Address [address] [place] [address] Care Team Providers Name Role Phone Latisha Campbell Primary Care Provider Encounter Details Date Type Department Care Team Description 05/04/2019 Orders Only [facility] Doctor Unassigned, No [address] [facility] [place] [address] [address] [place] [phone] Allergies No Known Allergiesdocumented as of this encounter (statuses as of 05/04/2019) Medications No known medicationsdocumented as of this encounter (statuses as of 05/04/2019) Active Problems Problem Noted Date Nexplanon in place 01/13/2018 Nexplanon insertion 05/08/2017 Overview: Removal date 05/08/20 Morbid obesity, unspecified obesity type 04/23/2017 Need for HPV vaccine 04/23/2017 documented as of this encounter (statuses as of 05/04/2019) Resolved Problems Problem Noted Date Resolved Date Well woman exam with routine gynecological exam 04/23/2017 04/28/2018 Other general counseling and advice for contraceptive 04/23/2017 04/28/2018 management documented as of this encounter (statuses as of 05/04/2019) Immunizations Name Administration Dates Next Due HPV9 02/24/2019, 04/28/2018, 04/23/2017 Meningococcal Polysaccharide (groups A, 03/06/2016 C, Y and W-135) conjugate vaccine (MCV4P) Tdap 10/06/2011 documented as of this encounter Social History Tobacco Use Types Packs/Day Years Used Date Never Smoker Smokeless Tobacco: Never Used Alcohol Use Drinks/Week oz/Week Comments No socially Sex Assigned at Date Recorded Not on file Job Start Date Occupation Industry Not on file Not on file Not on file Travel History Travel Start Travel End No recent travel history available. documented as of this encounter Last Filed Vital Signs Not on filedocumented in this encounter Plan of Treatment Health Maintenance Due Date Last Done Comments MENINGOCOCCAL B VACCINES (1 of 2007 2 - Risk Bexsero 2-dose series) VARICELLA VACCINES (1 of 2 - 2010 13+ 2-dose series) PAP SMEAR 2018 CHLAMYDIA SCREENING 04/28/2019 04/28/2018, 07/29/2017, 04/23/2017 INFLUENZA VACCINE 06/06/2019 DTaP,Tdap,and Td Vaccines (2 - 10/06/2021 10/06/2011 Td) MENINGOCOCCAL VACCINE Completed 03/06/2016 HPV VACCINES Completed 02/24/2019, 04/28/2018, 04/23/2017 PNEUMOCOCCAL 0-64 YEARS Aged Out No longer eligible based COMBINED SERIES on patient's age to complete this topic documented as of this encounter Procedures Procedure Name Priority Date/Time Associated Diagnosis Comments NOTICE OF PRIVACY Routine 05/04/2019 8:57 AM CDT PRACTICES documented in this encounter Results Not on filedocumented in this encounter Insurance Payer Benefit Plan Subscriber ID Effective Dates Phone Address Type / Group [facility] [id number] 2017-Lisa [phone] [address] PPO/POS [place] [id number] [place] [address] documented as of this encounter Advance Directives Name Relationship Healthcare Agent Relationship Communication Tanya Gannon Mother Primary healthcare agent
--- OUTSIDE RECORDS SUMMARY | 2019-06-27 17:11 | XMS REPORT | Summary of Care ---
:1995 Author Organization [facility] Address [address] [place] [address] Care Team Providers Name Role Phone Latisha Campbell [facility] Primary Care Provider Reason for Visit Reason Comments Well Woman Exam Encounter Details Date Type Department Care Team Description 05/04/2019 Office Visit [facility]- Latisha Campbell, Well woman exam (Primary Dx); [facility] Screen for STD (sexually transmitted disease); [address] Breakthrough bleeding on Nexplanon; [place], [place] Georg[place] A BMI 40.0-44.9, adult; [id number] [place] [id number] Candidiasis of skin [phone] Allergies No Known Allergiesdocumented as of this [...] This exam may be done by a raftsman, family healthcare provider, nurse practitioner, nurse horse exerciser, or specially trained nurse. Yearly breast exams [...] Guidelines for having clinical breast exams The [employer] [employer] recommends that [...] is best for you. Date Last Reviewed: 05/06/201719991717-2051 [employer]. [address] [place] [address]. All rights reserved. This information is not [...] breast self-examination (BSE). These experts include the [employer] [employer], the U.S. Preventive Services Task Force, and the [place] [employer] Gynec[employer]. Some experts [...] they are not cancer. Date Last Reviewed: 05/06/201719994422-5577 [employer]. [address] [place] [address], [place] [address]. All rights reserved. This information is not [...] does not recommend CBE. Date Last Reviewed: 07/06/201719996317-7904 [employer]. [address] [place] [address], [place] [address]. All rights reserved. This information is not [...] to protect your future. Date Last Reviewed: 09/05/201619996264-4624 [employer]. [address] [place] [address]. All rights reserved. This information is not [...] memory and body movement. Date Last Reviewed: 08/06/201619995825-8660 [employer]. [address] [place] [address]. All rights reserved. This information is not [...] cinnamon, pepper, and yamile. Date Last Reviewed: 07/06/201719992159-9545 [employer]. [address] [place] [address], [place] [address]. All rights reserved. This information is not intended as a substitute for professional medical care. Always follow your healthcare professional's instructions. Clinical Breast Exam Many health organizations recommend a yearly clinical breast exam. This exam may be done by a raftsman, family healthcare provider, nurse practitioner, nurse horse exerciser, or specially trained nurse. Yearly breast exams [...] Guidelines for having clinical breast exams The [employer] [employer] recommends that [...] is best for you. Date Last Reviewed: 05/06/201719993778-2899 [employer]. [address] [place] [address]. All rights reserved. This information is not intended as a substitute for professional medical care. Always follow your healthcare professional's instructions. documented in this encounter Progress Notes Sobeida Lu LVN - 05/04/2019 8:45 AM CDT23 year old presented to the clinic for WWE. 1) Previous BCM: nexplanon 2) Desired BCM: condoms 3) LMP:05/02/2019 4) Last [place]:04/26/2019 5) Last Pap:n/a Results: N/a 6) Tdap [...] file Gets together: Not on file Attends congregation service: Not on file Active member of [...] safe at home. Pt lives with Father. Yarsanism preference none. Social History Substance and Sexual [...] Effective Dates Phone Address Type / Group [facility] [id number] 2017-Lisa [phone] [address] PPO/POS [facility] [id number] [place] [address] documented as of this encounter Advance Directives Name Relationship Healthcare Agent Relationship Communication Tanya Jagdeep Mother Primary healthcare agent
--- OUTSIDE RECORDS SUMMARY | 2019-06-27 17:11 | XMS REPORT | Summary of Care ---
:1995 Author Organization [facility] Address [address] [place] [address] Care Team Providers Name Role Phone Latisha Campbell [facility] Primary Care Provider Reason for Visit Reason Comments Well Woman Exam Encounter Details Date Type Department Care Team Description 05/04/2019 Office Visit [facility]- Latisha Campbell, Well woman exam (Primary Dx); [facility] Screen for STD (sexually transmitted disease); [address] Breakthrough bleeding on Nexplanon; [place], [place] A BMI 40.0-44.9, adult; [address] [place] [id number] Candidiasis of skin [phone] Allergies No Known Allergiesdocumented as of this [...] This exam may be done by a ammonia operator, family healthcare provider, nurse practitioner, nurse credit collector, or specially trained nurse. Yearly breast exams [...] Guidelines for having clinical breast exams The [employer] recommends that [...] is best for you. Date Last Reviewed: 05/06/201719993460-8557 [employer]. [address] [place] [address]. All rights reserved. This information is not [...] breast self-examination (BSE). These experts include the [place] [employer], the U.S. Preventive Services Task Force, and the [place] [employer]ians and Gynecologists. Some experts [...] they are not cancer. Date Last Reviewed: 05/06/201719994661-1841 [employer]. [address] [place] [address], [place] [address]. All rights reserved. This information is not [...] does not recommend CBE. Date Last Reviewed: 07/06/201719993350-8611 [employer]. [address] [place] [address], [place] [address]. All rights reserved. This information is not [...] to protect your future. Date Last Reviewed: 09/05/201619998350-9136 [employer]. [address] [place] [address]. All rights reserved. This information is not [...] memory and body movement. Date Last Reviewed: 08/06/201619993019-5069 [employer]. [address] [place] [address]. All rights reserved. This information is not [...] cinnamon, pepper, and yamile. Date Last Reviewed: 07/06/201719999031-1922 [employer]. [address] [place] [address], [place] [address]. All rights reserved. This information is not intended as a substitute for professional medical care. Always follow your healthcare professional's instructions. Clinical Breast Exam Many health organizations recommend a yearly clinical breast exam. This exam may be done by a ammonia operator, family healthcare provider, nurse practitioner, nurse credit collector, or specially trained nurse. Yearly breast exams [...] Guidelines for having clinical breast exams The [employer]ians and Gynecologists recommends that [...] is best for you. Date Last Reviewed: 05/06/201719999817-3693 [employer]. [address] [place] [address]. All rights reserved. This information is not intended as a substitute for professional medical care. Always follow your healthcare professional's instructions. documented in this encounter Progress Notes Sobeida Lu LVN - 05/04/2019 8:45 AM CDT23 year old presented to the clinic for WWE. 1) Previous BCM: nexplanon 2) Desired BCM: condoms 3) LMP:05/02/2019 4) Last [place]:04/26/2019 5) Last Pap:n/a Results: N/a 6) Tdap [...] file Gets together: Not on file Attends worship service: Not on file Active member of [...] safe at home. Pt lives with Father. Scientology preference none. Social History Substance and Sexual [...] documented in this encounter Plan of Treatment Date Type Specialty Care Team Description 06/01/2019 Office Visit [facility] Latisha Campbell FNP [address] [place] [address] [phone] Name Type Priority Associated Diagnoses Date/Time PAP Smear-Liquid Based LAB Routine Well woman exam 05/04/2019 9:50 AM CDT GC & CHLAMYDIA AMPLIFIED LAB Routine Screen for STD (sexually 05/04/2019 9 :50 AM ASSAY transmitted disease) CDT TRICHOMONAS AMPLIFIED LAB Routine Screen for STD (sexually 05/04/2019 9: 50 AM ASSAY transmitted disease) CDT HIV 1/2 AG-AB WITH REFLEX LAB Routine Screen for STD (sexually 05/04/2019 9:56 AM transmitted disease) CDT GALV ONLY - SYPHILIS LAB Routine Screen for STD (sexually 05/04/2019 9:56 AM IGG/IGM transmitted disease) CDT Health Maintenance Due Date Last Done Comments [...] Effective Dates Phone Address Type / Group [facility] [id number] 2017-Lisa [phone] [address] PPO/POS [facility] [id number] [place] [address] documented as of this encounter Advance Directives Name Relationship Healthcare Agent Relationship Communication Tanyaaraceli Gannon Mother Primary healthcare agent
--- OUTSIDE RECORDS SUMMARY | 2019-06-27 17:11 | XMS REPORT | Summary of Care ---
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 (Primary Dx) [address] [place], [place] [address] [place], [place] [id number] Allergies No Known Allergiesdocumented as of this encounter (statuses as of 06/01/2019) Medications No known medicationsdocumented as of this encounter (statuses as of 06/01/2019) Active Problems Problem Noted Date Morbid obesity, unspecified obesity type 04/23/2017 documented as of this encounter (statuses as of 06/01/2019) Resolved Problems Problem Noted Date Resolved Date Nexplanon in place 01/13/2018 06/01/2019 Nexplanon insertion 05/08/2017 06/01/2019 Overview: Removal date 05/08/20 Well woman exam with routine gynecological exam 04/23/2017 04/28/2018 Other general counseling and advice for contraceptive 04/23/2017 04/28/2018 management Need for HPV vaccine 04/23/2017 05/04/2019 documented as of this encounter (statuses as of 06/01/2019) Immunizations Name Administration Dates Next Due HPV9 [...] Sign Reading Time Taken Comments Blood Pressure 120/74 06/01/2019 10:55 AM CDT Pulse 61 06/01/2019 10:55 AM CDT Temperature 36.7 C (98.1 F) 06/01/2019 10:55 AM CDT Respiratory Rate 16 06/01/2019 10:55 AM CDT Oxygen Saturation - - Inhaled Oxygen Concentration - - Weight 115.7 kg (255 lb 2 oz) 06/01/2019 10:55 AM CDT Height 165.1 cm (5' 5") 06/01/2019 10:55 AM CDT Body Mass Index 42.46 06/01/2019 10:55 AM CDT documented in this encounter Progress Notes Latisha Campbell FNP - 06/01/2019 10:30 AM CDTNexplanon REMOVAL PROCEDURE NOTE Preoperative Diagnoses: Nexplanon Removal Tried 3 weeks of estradiol with no improvement in breakthrough bleeding, patient desires removal I discussed the likelihood of success with Nexplanon removal procedure during the consent process with the patient. Staff present for procedure: Rebecca TORIBIO Pt reports no past or present history of physical, sexual, and emotional abuse. The risks, benefits and alternatives were discussed. The patient voiced her understanding. She wished to proceed and an informed consent was obtained. Patient has been identified by name and and will be undergoing Nexplanon removal. Patient is right handed. Patient, procedure and site have been confirmed by the following clinicians: Rebecca Licona and Charbel Lu LVN. Timeout performed by Rebecca TORIBIO and patient immediately prior to the procedure. Procedure: The patient is placed on the exam table in a supine position. The implant was palpated onthe inner aspect of the left arm. The Nexplanon implant site is prepped with Chlorhexadine. Local area is injected subcutaneously with 2 cc of lidocaine 1% without epinephrine along the planned incision site. A small incision is made with a sterile scalpel. Straight hemostat is used to access the implant through the incision site. The implant is secured with the hemostat and carefully removed through the incision. There is minimal bleeding from the incision site. Sterile gauze and a pressure dressing is placed over the removal site. The patient tolerated the procedure well and there were no complications. Post-procedure instructions given. Patient verbalized understanding. Staff present for procedure: ALYCIA Rey. Findings None Assessment Nexplanon Removed Plan Nexplanon removal (primary encounter diagnosis) Comment: Plan: patient desires condoms for contraception Patient visualized removed Nexplanon. obeida Plascencia LVN - 06/01/2019 10:30 AM CDTPt in clinic for Nexplanon removal. Informed consent signed and obtained from pt documented in this encounter Plan of Treatment Health Maintenance Due Date Last Done Comments MENINGOCOCCAL B VACCINES (1 2007 of 2 - Risk Bexsero 2-dose series) INFLUENZA VACCINE (#1) 2019 CHLAMYDIA SCREENING 05/04/2020 05/04/2019, 04/28/2018, 07/29/2017, Additional history exists DTaP,Tdap,and Td Vaccines 10/06/2021 10/06/2011 (2 - Td) PAP SMEAR 05/04/2022 05/04/2019 MENINGOCOCCAL VACCINE Completed 03/06/2016 HPV VACCINES Completed 02/24/2019, 04/28/2018, 04/23/2017 PNEUMOCOCCAL 0-64 YEARS Aged Out No longer eligible COMBINED SERIES based on patient's age to complete this topic VARICELLA VACCINES Discontinued documented as of this encounter Results Not on filedocumented in this encounter Visit Diagnoses Diagnosis Nexplanon removal - Primary Surveillance of previously prescribed implantable subdermal contraceptive documented in this encounter Insurance Payer Benefit Plan Subscriber ID Effective Dates Phone Address Type / Group BCBS OF [facility] [id number] 2017-Lisa [phone] [address] PPO/POS [place] t [id number] [place] [address] documented as of this encounter Advance Directives Name Relationship Healthcare Agent Relationship Communication Tanya Gannon Mother Primary healthcare agent
--- OUTSIDE RECORDS SUMMARY | 2019-06-27 17:11 | XMS REPORT | Summary of Care ---
:1995 Author Organization [facility] Address [address] [place] [address] Care Team Providers Name Role Phone Latisha Campbell Primary Care Provider Encounter Details Date Type Department Care Team Description 06/01/2019 Letter (Out) [facility]- Latisha Campbell, [facility] [address] [place] [address] [place] [id number] Allergies No Known Allergiesdocumented as of this encounter (statuses as of 06/01/2019) Medications No known medicationsdocumented as of this encounter (statuses as of 06/01/2019) Active Problems Problem Noted Date Nexplanon in [...] Effective Dates Phone Address Type / Group BC OF [facility] [id number] 2017-Lisa [phone] [address] PPO/POS [place] t [id number] [place] [address] documented as of this encounter Advance Directives Name Relationship Healthcare Agent Relationship Communication Tanya Gannon Mother Primary healthcare agent
--- OUTSIDE RECORDS SUMMARY | 2019-06-27 17:12 | XMS REPORT | Summary of Care ---
:1995 Author Organization [facility] - Health Address [address] [place] [address] Care Team Providers Name Role Phone Latisha Campbell Primary Care Provider Encounter Details Date Type Department Care Team Description 06/01/2019 Orders Only [facility] Doctor Unassigned, No [address] [facility] Name [place] [id number] [address] [place] [id number] Allergies No Known Allergiesdocumented as of this encounter (statuses as of 06/03/2019) Medications No known medicationsdocumented as of this encounter (statuses as of 06/03/2019) Active Problems Problem Noted Date Morbid obesity, unspecified obesity type 04/23/2017 documented as of this encounter (statuses as of 06/03/2019) Resolved Problems Problem Noted Date Resolved Date Nexplanon in place 01/13/2018 06/01/2019 Nexplanon insertion 05/08/2017 06/01/2019 Overview: Removal date 05/08/20 Well woman exam with routine gynecological exam 04/23/2017 04/28/2018 Other general counseling and advice for contraceptive 04/23/2017 04/28/2018 management Need for HPV vaccine 04/23/2017 05/04/2019 documented as of this encounter (statuses as of 06/03/2019) Immunizations Name Administration Dates Next Due HPV9 [...] VACCINES Discontinued documented as of this encounter Procedures Procedure Name Priority Date/Time Associated Diagnosis Comments DISCLOSURE AND CONSENT, Routine 06/01/2019 12:01 AM MEDICAL AND SURGICAL CDT PROCEDURES documented in this encounter Results Not on filedocumented in this encounter Insurance Payer Benefit Plan Subscriber ID Effective Dates Phone Address Type / Group [facility] [id number] 2017-Lisa [phone] [address] PPO/POS [place] t [id number] [place] [address] documented as of this encounter Advance Directives Name Relationship Healthcare Agent Relationship Communication Tanyaaraceli Gannon Mother Primary healthcare agent
--- OUTSIDE RECORDS SUMMARY | 2019-06-27 17:12 | XMS REPORT | Summary of Care ---
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 Primary Care Provider Reason for Visit Reason Comments NEXPLANON remove Encounter Details Date Type Department Care Team Description 06/01/2019 Office Visit [facility]- Latisha Campbell, Nexplanon removal [facility] (Primary Dx) [address] [place], [place] [address] [place], [place] [address] Allergies No Known Allergiesdocumented as of this [...] Phone Address Type / Group BCBS OF [facility] [id number] 2017-Lisa [phone] [address] PPO/POS [place] t [id number] [place] [address] documented as of this encounter Advance Directives Name Relationship Healthcare Agent Relationship Communication Tanya Gannon Mother Primary healthcare agent
[2019-06-27 18:01] LABS: Urine Blood 1+ (NEG); Urine Glucose TRACE (NEG); Urine Protein NEGATIVE (NEG)
[2019-06-27 18:06] LABS: Absolute Lymphocytes (CBC) 0.5 K/uL (0.7-4.9); Basophils % 0.4 % (0-1.3); Hematocrit 42.6 % (36.0-45.0); Lymphocytes % 5.9 % (15.3-44.8); MPV 8.5 fL (7.6-11.3); RBC Red Blood Cell Count 4.64 M/uL (3.86-4.86)
[2019-06-27] MEDS ORDERED: PROMETHAZINE 25 MG/ML VIAL ONE ×2 (18:14→19:22)
[2019-06-27] MEDS ORDERED: NA CHLORIDE 0.9% 1,000 ML ONE ×2 (18:14→21:10)
[2019-06-27 18:20] LABS: ALT/SGPT 42 U/L (12-78); AST/SGOT 23 U/L (15-37); Albumin 3.7 g/dL (3.4-5.0); Alkaline Phosphatase 160 U/L (45-117); BUN Blood Urea Nitrogen 8 mg/dL (7-18); Bicarbonate 25 mmol/L (21-32); Bilirubin Direct 0.1 mg/dL (0-0.2); Bilirubin Total 0.6 mg/dL (0.2-1.0); Glucose Level 98 mg/dL (74-106); Lipase 70 U/L (73-393); Protein, Total 7.3 g/dL (6.4-8.2); Sodium Level 141 mmol/L (136-145)
[2019-06-27 18:23] LABS: Urine Bacteria <20 /HPF (<20); Urine Culture Reflex Order NOT NEEDED; Urine Mucus HEAVY /HPF (NONE SEEN)
[2019-06-27 20:25] LABS: Blood Morphology Comment NOT SEEN (NOT SEEN); Platelet Estimate ADEQ; Urine White Blood Cell Casts OK
[2019-06-27] MEDS ORDERED: ONDANSETRON 4 MG/2 ML VIAL ONE (20:28)
--- NOTE | 2019-06-27 20:41 | RAD REPORT ---
EXAM DESCRIPTION: US - Abdomen Exam Limited - 06/27/2019 8:02 pm CLINICAL HISTORY: ABD PAIN COMPARISON: ABDOMINAL EXAM COMPLETE dated 04/23/2010 FINDINGS: No gallstones, sludge or other abnormalities within the gallbladder lumen. There is no wal l thickening or pericholecystic fluid. No common duct stone or biliary tree dilatation identified. IMPRESSION: Normal gallbladder and biliary tree ultrasound.
[2019-06-27 20:55] LABS: Barbiturates NEGATIVE (NEGATIVE); Benzodiazepines NEGATIVE (NEGATIVE); Cocaine NEGATIVE (NEGATIVE); METHAMPHETAM NEGATIVE (NEGATIVE); Methadone NEGATIVE (NEGATIVE); Opiates NEGATIVE (NEGATIVE); Phencyclidine NEGATIVE (NEGATIVE); THC Cannibis NEGATIVE (NEGATIVE)
--- NOTE | 2019-06-27 21:41 | ER ---
Nurse's Notes [facility] Name: Marquita Gannon Age: 23 yrs Sex: Female : 1995 Arrival Date: 06/27/2019 Time: 17:11 Bed 26 Private MD: None, None Diagnosis: Vomiting, unspecified;Volume depletion Presentation: 06/27 17:21 Presenting complaint: Patient states: I woke up feeling nauseous, was having abd pain, la1 threw up a few times since then. Transition of care: patient was not received from another setting of care. Onset of symptoms was June 27, 2019. Risk Assessment: Do you want to hurt yourself or someone else? Patient reports no desire to harm self or others. Initial Sepsis Screen: Does the patient meet any 2 criteria? No. Patient's initial sepsis screen is negative. Does the patient have a suspected source of infection? No. Patient's initial sepsis screen is negative. Care prior to arrival: None. 17:21 Method Of Arrival: Ambulatory la1 17:21 Acuity: EMEKA 3 la1 CONTACT OFFICER: 17:23 LMP 06/27/2019 la1 Historical: - Allergies: 17:22 No Known Allergies; la1 - PMHx: 17:22 None; la1 - Immunization history:: Adult Immunizations up to date. - Social history:: Smoking status: Patient/guardian denies using tobacco. - Ebola Screening: : No symptoms or risks identified at this time. Screenin:07 Abuse screen: Denies threats or abuse. Denies injuries from another. Nutritional mg2 screening: No deficits noted. Tuberculosis screening: No symptoms or risk factors identified. Fall Risk IV access (20 points). Assessment: 18:06 General: Appears in no apparent distress. comfortable, Behavior is calm, cooperative. mg2 Pain: Complains of pain in abdomen. Neuro: Level of Consciousness is awake, alert, obeys commands, Oriented to person, place, time, situation. Cardiovascular: Capillary refill < 3 seconds Patient's skin is warm and dry. Respiratory: Airway is patent Respiratory effort is even, unlabored, Respiratory pattern is regular, symmetrical. GI: Abdomen is non-distended, Reports epigastric pain, nausea, vomiting. : No signs and/or symptoms were reported regarding the genitourinary system. : Urine is pls see urine dip. EENT: No signs and/or symptoms were reported regarding the EENT system. Derm: Skin is intact, is healthy with good turgor, Skin is pink, warm \T\ dry. normal. Musculoskeletal: Circulation, motion, and sensation intact. Capillary refill < 3 seconds. 22:03 Reassessment: patient vomited 3 times in ed with greenish vomitus. patient felt better mg2 after the antiemetics. up for discharge once patient finished the iv Fluid. 23:11 Reassessment: Patient appears in no apparent distress at this time. Patient and/or mg2 family updated on plan of care and expected duration. Pain level reassessed. Patient is alert, oriented x 3, equal unlabored respirations, skin warm/dry/pink. Vital Signs: 17:22 BP 114 / 69; Pulse 80; Resp 16; Temp 98.7; Pulse Ox 100% on R/A; Weight 112.04 kg; la1 Height 5 ft. 5 in. (165.10 cm); 19:33 Pulse 72; Resp 18; Pulse Ox 100% on R/A; mg2 21:30 BP 116 / 78; Pulse 81; Resp 18; Pulse Ox 100% on R/A; mg2 23:12 BP 120 / 70; Pulse 88; Resp 18; Temp 98; Pulse Ox 100% on R/A; Pain 0/10; mg2 17:22 Body Mass Index 41.10 (112.04 kg, 165.10 cm) la1 ED Course: 17:11 Patient arrived in ED. ag5 17:11 None, None is Private Physician. ag5 17:12 [facility] Leal [facility]C [facility]. snw 17:12 Uriel Dueñas MD is Attending Physician. snw 17:22 Triage completed. la1 17:23 Arm band placed on left wrist. la1 17:36 Taye Del Cid, MATT is Primary Nurse. mg2 17:51 Initial lab(s) drawn, by me, sent to lab. Urine collected: clean catch specimen, clear. lt1 Inserted saline lock: 20 gauge in left antecubital area, using aseptic technique. 18:07 Patient has correct armband on for positive identification. mg2 18:08 No provider procedures requiring assistance completed. mg2 20:02 Ultrasound completed. Patient tolerated well. sg3 20:03 US Abdomen Limited In Process Unspecified. EDMS 23:13 IV discontinued, intact, bleeding controlled, No redness/swelling at site. Pressure mg2 dressing applied. Administered Medications: 18:24 Drug: Phenergan 12.5 mg Route: IVP; Site: left antecubital; mg2 19:32 Follow up: Response: No adverse reaction mg2 18:25 Drug: NS 0.9% 1000 ml Route: IV; Rate: 1 bolus; Site: left antecubital; mg2 19:30 Follow up: Response: No adverse reaction; IV Status: Completed infusion; IV Intake: mg2 1000ml 19:32 Drug: Phenergan 12.5 mg Route: IVP; Site: left antecubital; mg2 23:11 Follow up: Response: No adverse reaction; Marked relief of symptoms mg2 20:53 Drug: Zofran 4 mg Route: IVP; Site: left antecubital; mg2 23:10 Follow up: Response: No adverse reaction; Marked relief of symptoms mg2 21:07 Drug: NS 0.9% 1000 ml Route: IV; Rate: 1 bolus; Site: left antecubital; mg2 23:10 Follow up: Response: No adverse reaction; IV Status: Completed infusion; IV Intake: mg2 1000ml Intake: 19:30 IV: 1000ml; Total: 1000ml. mg2 23:10 IV: 1000ml; Total: 2000ml. mg2 Outcome: 21:39 Discharge ordered by . snw 23:12 Discharged to home ambulatory, with family. mg2 23:12 Condition: good 23:12 Discharge instructions given to patient, family, Instructed on discharge instructions, follow up and referral plans. medication usage, Demonstrated understanding of instructions, follow-up care, medications, Prescriptions given X 2. 23:13 Patient left the ED. mg2 Signatures: Dispatcher [employer] EDMS Love Leal, KALSOMINER-C KALSOMINER-Csnw Juan Luis Castro RN RN Lexis Cr 3 Taye Del Cid RN RN mg2 Darell Ruiz ag5 Juliane Callahan lt1
--- NOTE | 2019-06-27 21:42 | EDPHYS ---
Physician Documentation [facility] Name: Marquita Gannon Age: 23 yrs Sex: Female : 1995 Arrival Date: 06/27/2019 Time: 17:11 Bed 26 Private MD: None, None ED Physician Uriel Dueñas HPI: 06/27 18:17 This 23 yrs old Female presents to ER via Ambulatory with complaints of snw Nausea/Vomiting, Abdominal Pain. 18:17 The patient presents to the emergency department with nausea, vomiting, abdominal pain, snw of the epigastric area, described as crampy. Onset: The symptoms/episode began/occurred suddenly, today. Possible causes: unknown. The symptoms are aggravated by food . Associated signs and symptoms: Pertinent positives: diaphoresis. Severity of symptoms: At their worst the symptoms were moderate. It is unknown whether or not the patient has had similar symptoms in the past. The patient has not recently seen a physician. 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 - Social history:: Smoking status: Patient/guardian denies using tobacco. - Ebola Screening: : No symptoms or risks identified at this time. ROS: 18:16 Constitutional: Negative for fever, chills, and weight loss, Eyes: Negative for injury, snw pain, redness, and discharge, ENT: Negative for injury, pain, and discharge, Neck: Negative for injury, pain, and swelling, Cardiovascular: Negative for chest pain, palpitations, and edema, Respiratory: Negative for shortness of breath, cough, wheezing, and pleuritic chest pain, Back: Negative for injury and pain, : Negative for injury, bleeding, discharge, and swelling, MS/Extremity: Negative for injury and deformity, Skin: Negative for injury, rash, and discoloration, Neuro: Negative for headache, weakness, numbness, tingling, and seizure. 18:16 Abdomen/GI: Positive for abdominal pain, nausea, vomiting. Exam: 18:16 Constitutional: This is a well developed, well nourished patient who is awake, alert, snw and in no acute distress. Head/Face: Normocephalic, atraumatic. Eyes: Pupils equal round and reactive to light, extra-ocular motions intact. Lids and lashes normal. Conjunctiva and sclera are non-icteric and not injected. Cornea within normal limits. Periorbital areas with no swelling, redness, or edema. ENT: Nares patent. No nasal discharge, no septal abnormalities noted. Tympanic membranes are normal and external auditory canals are clear. Oropharynx with no redness, swelling, or masses, exudates, or evidence of obstruction, uvula midline. Mucous membranes moist. Neck: Trachea midline, no thyromegaly or masses palpated, and no cervical lymphadenopathy. Supple, full range of motion without nuchal rigidity, or vertebral point tenderness. No Meningismus. Chest/axilla: Normal chest wall appearance and motion. Nontender with no deformity. No lesions are appreciated. Cardiovascular: Regular rate and rhythm with a normal S1 and S2. No gallops, murmurs, or rubs. Normal PMI, no JVD. No pulse deficits. Respiratory: Lungs have equal breath sounds bilaterally, clear to auscultation and percussion. No rales, rhonchi or wheezes noted. No increased work of breathing, no retractions or nasal flaring. Back: No spinal tenderness. No costovertebral tenderness. Full range of motion. Skin: Warm, dry with normal turgor. Normal color with no rashes, no lesions, and no evidence of cellulitis. MS/ Extremity: Pulses equal, no cyanosis. Neurovascular intact. Full, normal range of motion. Neuro: Awake and alert, GCS 15, oriented to person, place, time, and situation. Cranial nerves II-XII grossly intact. Motor strength 5/5 in all extremities. Sensory grossly intact. Cerebellar exam normal. Normal gait. 18:16 Abdomen/GI: Inspection: abdomen appears normal, obese Bowel sounds: normal, Palpation: mild abdominal tenderness, in the epigastric area. Vital Signs: 17:22 BP 114 / 69; Pulse 80; Resp 16; Temp 98.7; Pulse Ox 100% on R/A; Weight 112.04 kg; la1 Height 5 ft. 5 in. (165.10 cm); 19:33 Pulse 72; Resp 18; Pulse Ox 100% on R/A; mg2 21:30 BP 116 / 78; Pulse 81; Resp 18; Pulse Ox 100% on R/A; mg2 23:12 BP 120 / 70; Pulse 88; Resp 18; Temp 98; Pulse Ox 100% on R/A; Pain 0/10; mg2 17:22 Body Mass Index 41.10 (112.04 kg, 165.10 cm) la1 MDM: 17:37 Patient medically screened. snw 21:41 Data reviewed: vital signs, nurses notes. Data interpreted: Pulse oximetry: on room air snw is 100 %. Interpretation: normal. Counseling: I had a detailed discussion with the patient and/or guardian regarding: the historical points, exam findings, and any diagnostic results supporting the discharge/admit diagnosis, lab results, radiology results, to return to the emergency department if symptoms worsen or persist or if there are any questions or concerns that arise at home. Special discussion: Based on the patient's Hx, exam, and Dx evaluation, there is no indication for emergent surgery or inpatient Tx. It is understood by the patient/guardian that if the Sx's persist or worsen they need to return immediately for re-evaluation. Based on the history and exam findings, there is no indication for further emergent testing or inpatient evaluation. I discussed with the patient/guardian the need to see the electrogalvanizing machine operator for further evaluation of the symptoms. I discussed with the patient/guardian the need to see the primary care provider for further evaluation of the symptoms. 06/27 17:37 Order name: Basic Metabolic Panel; Complete Time: 18:30 mg2 06/27 17:37 Order name: CBC with Diff; Complete Time: 20:29 mg2 06/27 17:37 Order name: Creatinine for Radiology; Complete Time: 18:20 mg2 06/27 17:37 Order name: Hepatic Function; Complete Time: 18:30 mg2 06/27 17:37 Order name: Lipase; Complete Time: 18:30 mg2 06/27 17:37 Order name: Urine Microscopic Only; Complete Time: 18:30 snw 06/27 17:55 Order name: Urine Dipstick--Ancillary (enter results); Complete Time: 18:04 ms 06/27 17:55 Order name: Urine --Ancillary (enter results); Complete Time: 18:04 ms 06/27 18:13 Order name: CBC Smear Scan; Complete Time: 20:29 EDMS 09/22 19:20 Order name: US Abdomen Limited; Complete Time: 21:39 snw 06/27 20:12 Order name: UDS snw 06/27 20:12 Order name: Urine Drug Screen; Complete Time: 21:03 EDMS 06/27 17:37 Order name: IV Saline Lock; Complete Time: 18:04 mg2 06/27 17:37 Order name: Labs collected and sent; Complete Time: 18:05 mg2 06/27 17:37 Order name: Urine Test (obtain specimen); Complete Time: 18:04 snw 06/27 17:37 Order name: Urine Dipstick-Ancillary (obtain specimen); Complete Time: 18:04 snw Administered Medications: 18:24 Drug: Phenergan 12.5 mg Route: IVP; Site: left antecubital; mg2 19:32 Follow up: Response: No adverse reaction mg2 18:25 Drug: NS 0.9% 1000 ml Route: IV; Rate: 1 bolus; Site: left antecubital; mg2 19:30 Follow up: Response: No adverse reaction; IV Status: Completed infusion; IV Intake: mg2 1000ml 19:32 Drug: Phenergan 12.5 mg Route: IVP; Site: left antecubital; mg2 23:11 Follow up: Response: No adverse reaction; Marked relief of symptoms mg2 20:53 Drug: Zofran 4 mg Route: IVP; Site: left antecubital; mg2 23:10 Follow up: Response: No adverse reaction; Marked relief of symptoms mg2 21:07 Drug: NS 0.9% 1000 ml Route: IV; Rate: 1 bolus; Site: left antecubital; mg2 23:10 Follow up: Response: No adverse reaction; IV Status: Completed infusion; IV Intake: mg2 1000ml Disposition: 06/27/19 21:39 Discharged to Home. Impression: Vomiting, unspecified, Volume depletion. - Condition is Stable. - Discharge Instructions: Dehydration, Adult, Nausea and Vomiting, Adult, Hand Washing, Rehydration, Adult. - Prescriptions for Bentyl 20 mg Oral Tablet - take 1 tablet by ORAL route every 6 hours As needed; 20 tablet. Zofran 4 mg Oral Tablet - take 1 tablet by ORAL route every 12 hours As needed; 20 tablet. - Work release form, Medication Reconciliation Form, Thank You Letter, Antibiotic Education, Prescription Opioid Use form. - Follow up: Private Physician; When: 2 - 3 days; Reason: Recheck today's complaints, Continuance of care, Re-evaluation by your physician. Follow up: Emergency Department; When: As needed; Reason: Worsening of condition. Signatures: Dispatcher [employer] EDLove Manning, ALYCIA-C ORACLE ADF DEVELOPER-Csnw Juan Luis Castro RN RN la1 Taye Del Cid RN RN mg2 Corrections: (The following items were deleted from the chart) 23:13 21:39 06/27/2019 21:39 Discharged to Home. Impression: Vomiting, unspecified; Volume mg2 depletion. Condition is Stable. Forms are Medication Reconciliation Form, Thank You Letter, Antibiotic Education, Prescription Opioid Use. Follow up: Private Physician; When: 2 - 3 days; Reason: Recheck today's complaints, Continuance of care, Re-evaluation by your physician. Follow up: Emergency Department; When: As needed; Reason: Worsening of condition. snw
[2019-06-27 23:40] VITALS: O2SAT 100
[2019-06-27 23:44] VITALS: BP 120/70; TEMP 98
== END 2019-06-27 23:13 | disposition home or self-care (01) ==
LOC: ER 17:08
DX: E86.9 Volume depletion, unspecified (principal)
CPT/HCPCS: 85025; 80048; 36415; 81025; 80076; 80307 ×8; 83690; 76705; J2550 ×2; J7030 ×2; J2405; 81003; 81015; 96361; 96374; 96375; 99284

== ENCOUNTER 2020-02-24 00:51 | Emergency (ER) | payer BC ==
--- OUTSIDE RECORDS SUMMARY | 2020-02-24 00:53 | XMS REPORT ---
:1995 Author Organization [facility] t Address [address] [place] [address] [address]. [address] [place] [address] Care Team Providers Name Role Phone Sally Amaro Attending Clinician Problems This patient has no known problems. Allergies, Adverse Reactions, Alerts This patient has no known allergies or adverse reactions. Medications This patient has no known medications. Procedures This patient has no known procedures. Encounters Start End Encounter Admission Attending Care Care Encounter Source Date/Time Date/Time Type Type Clinicians Facility Department ID 2019-11-02 2019-11-02 Office [facility] [id number] 10:37:08 12:01:18 Visit Latisha Zavaal PHOSPHATIC FERTILIZER SUPERVISOR [id number] [facility] [id number] MATERNAL [id number] & CHILD [address] [place] [address] Results This patient has no known results.
--- OUTSIDE RECORDS SUMMARY | 2020-02-24 00:55 | XMS REPORT | Summary of Care ---
:1995 Author Organization [facility] Address [address] [place] [address] Care Team Providers Name Role Phone Latisha Campbell DISPLAY COORDINATOR Primary Care Provider Reason for Visit Reason Comments Vaginal Bleeding Encounter Details Date Type Department Care Team Description 11/02/2019 Office Visit [facility]- Latisha Campbell, Vag inal spotting [facility] (Primary Dx) [address] [place], [place] [address] [place] [address] [phone] Allergies No Known Allergiesdocumented as of this encounter (statuses as of 11/02/2019) Medications No known medicationsdocumented as of this encounter (statuses as of 11/02/2019) Active Problems Problem Noted Date Morbid obesity, unspecified obesity type 04/23/2017 documented as of this encounter (statuses as of 11/02/2019) Resolved Problems Problem Noted Date Resolved Date Nexplanon in place 01/13/2018 06/01/2019 Nexplanon insertion 05/08/2017 06/01/2019 Overview: Removal date 05/08/20 Well woman exam with routine gynecological exam 04/23/2017 04/28/2018 Other general counseling and advice for contraceptive 201604/28/2018 management Need for HPV vaccine 04/23/2017 05/04/2019 documented as of this encounter (statuses as of 11/02/2019) Immunizations Name Administration Dates Next Due HPV9 [...] Sign Reading Time Taken Comments Blood Pressure 98/64 11/02/2019 11:00 AM SATELLITE COMMUNICATIONS ENGINEER Pulse 65 11/02/2019 11:00 AM SATELLITE COMMUNICATIONS ENGINEER Temperature 36.3 C (97.3 F) 11/02/2019 11:00 AM SATELLITE COMMUNICATIONS ENGINEER Respiratory Rate 18 11/02/2019 11:00 AM SATELLITE COMMUNICATIONS ENGINEER Oxygen Saturation - - Inhaled Oxygen Concentration - - Weight 100.9 kg (222 lb 6.4 oz) 11/02/2019 11:00 AM SATELLITE COMMUNICATIONS ENGINEER Height 165.1 cm (5' 5") 11/02/2019 11:00 AM SATELLITE COMMUNICATIONS ENGINEER Body Mass Index 37.01 11/02/2019 11:00 AM SATELLITE COMMUNICATIONS ENGINEER documented in this encounter Progress Notes Latisha Campbell, DISPLAY COORDINATOR - 11/02/2019 10:15 AM CST Chief complaint: Chief Complaint Patient presents with Vaginal Bleeding HPI Marquita Gannon is 24 year old here with complaint of vaginal spotting. Pt had Nexplanon removed 05/2020. After that menses were regular until 2 weeks ago. LMP 10/09/19, she then started having light brown spotting on 10/22/19 with wiping. Last intercourse 10/19/19. Denies other symptoms. Histories OB History Para Term AB Living 0 0 0 0 0 0 SAB TAB Ectopic Multiple Live Births 0 0 0 0 History reviewed. No pertinent past medical history. Family History Problem Relation Age of Onset Neurological Mother Heart Mother No Significant Medical Problems Father Other - see comments Brother gall bladder/ appendix removed No Significant Medical Problems Maternal Aunt No Significant Medical Problems Maternal Uncle No Significant Medical Problems Paternal Aunt No Significant Medical Problems Paternal Uncle No Significant Medical Problems Maternal Grandmother Cancer Maternal Grandfather stomach No Significant Medical Problems Paternal Grandmother No Significant Medical Problems Paternal Grandfather Arthritis NoFHx defects NoFHx Asthma NoFHx Ovarian Cancer NoFHx Colon Cancer NoFHx Breast Cancer NoFHx Uterine Cancer NoFHx Diabetes NoFHx Depression NoFHx Genetic NoFHx High cholesterol NoFHx Hypertension NoFHx Mental retardation NoFHx Osteoporosis NoFHx Psychiatry NoFHx Family Status Relation Name Status Mo Alive Fa Alive Bro Alive MAunt Alive MUnc Alive PAunt Alive PUnc Alive MGMo Alive MGFa Alive PGMo Alive PGFa Alive NoFHx (Not Specified) History reviewed. No pertinent surgical history. Social History Socioeconomic History Marital status: Single [...] Used Substance and Sexual Activity Alcohol use: Yes Comment: socially Drug use: No Sexual activity: Yes Partners: Male control/protection: Implant, Condom Comment: last sexual intercourse 04/26/2019 Lifestyle Physical activity: Days per week: Not on file Minutes per session: Not on file Stress: Not on file Relationships Social connections: Talks on phone: Not on file Gets together: Not on file Attends baptist service: Not on file Active member of [...] she feels safe at home. Pt lives alone. Presybeterian preference none. Social History Substance and Sexual Activity Sexual Activity Yes Partners: Male control/protection: Implant, Condom Comment: last sexual intercourse 04/26/2019 Labs I have reviewed the patient's labs. and Labs are pending. Radiology No new radiology. Allergies Marquita has No Known Allergies. Medications Marquita currently has no medications in their medication list. Review of Systems Constitutional: Negative. Respiratory: Negative. Breasts: Negative. Cardiovascular: Negative. Genitourinary: Positive for vaginal bleeding. Neurological: Negative. Psychiatric/Behavioral: Negative. Endocrine: Endocrine negative BP 98/64 (BP Location: Right arm, Patient Position: Sitting, BP CUFF SIZE: Adult Large) | Pulse 65| Temp 36.3 C (97.3 F) (Oral) | Resp 18 | Ht 5' 5" (1.651 m) | Wt 222 lb 6.4 oz (100.9 kg) |LMP 10/22/2019 | BMI 37.01 kg/m Pregravid BMI: Could not be calculated Physical Exam Vitals reviewed. Constitutional: She is oriented to person, place, and time. She appears well- developed and well-nourished. Pulmonary/Chest: Normal inspiratory effort. Neuro/Psychiatric: She has a normal mood and affect. She is oriented to person, place, and time. External genitalia: Normal external genitalia appropriate for age. Vagina: Flecks of light brown mixed with normal vaginal discharge. Cervix: Normal cervix. Assessment/Plan 1. Vaginal spotting UPT negative Gc/ct and trich pending If labs negative and spotting becomes persistent, RTC. - POCT TEST - GC & CHLAMYDIA AMPLIFIED ASSAY - TRICHOMONAS AMPLIFIED ASSAY Return to clinic in for next WWE . Discussed treatment options. Reviewed patient instructions and provided printed copy. This visit did not involve counseling and coordination that comprised more than 50% of the visit time. LLITE COMMUNICATIONS ENGINEER documented in this encounter Plan of Treatment Date Type Specialty Care Team Description 05/05/2020 Office Visit OB Satellites , [facility] Room 05/05/2020 Office Visit [facility]ell[facility] Latisha Campbell FNP [address] [place], [place] [address] [phone] Name Type Priority Associated Diagnoses Date/Ti me GC & CHLAMYDIA AMPLIFIED LAB Routine Vaginal spotting 11/02/2019 1:11 PM SATELLITE COMMUNICATIONS ENGINEER ASSAY TRICHOMONAS AMPLIFIED LAB Routine Vaginal spotting 1:11 PM SATELLITE COMMUNICATIONS ENGINEER ASSAY Health Maintenance Due Date Last Done Comments CHLAMYDIA SCREENING 05/04/2020 05/04/2019, 04/28/2018, 07/29/2017, Additional history exists MENINGOCOCCAL B VACCINES (1 11/01/2020 Post poned from of 2 - Risk Bexsero 2-dose 07/14 (Refused) series) INFLUENZA VACCINE (#1) 2020 Postponed from 06/06/2019 (Refu sed) DTaP,Tdap,and Td Vaccines 10/06/2021 10/06/2011 (2 - Td) PAP SMEAR 05/04/2022 05/04/2019 MENINGOCOCCAL VACCINE Completed 03/06/2016 HPV VACCINES Completed 02/24/2019, 04/28/2018, 04/23/2017 PNEUMOCOCCAL 0-64 YEARS Aged Out No longe r eligible COMBINED SERIES based on patient 's age to complete this topic VARICELLA VACCINES Discontinued documented as of this encounter Procedures Procedure Name Priority Date/Time Associated Diagnosis Comme nts POCT TEST Routine 11/02/2019 1:11 PM Vaginal spotti ng Results for this SATELLITE COMMUNICATIONS ENGINEER procedure are i n the results section. documented in this encounter Results POCT TEST (11/02/2019 1:11 PM SATELLITE COMMUNICATIONS ENGINEER) Pathologist Sig nature POCT PREG Negative On board controls acceptable Yes with C Line POCT PREG LOT # POCT PREG TEST DATE Specimen Urine - URINE, CLEAN CATCH documented in this encounter Visit Diagnoses Diagnosis Vaginal spotting - Primary Other specified noninflammatory disorder of vagina documented in this encounter Insurance Payer Benefit Plan Subscriber ID Effective Dates Phone Address Type / Group [facility] [id number] 2017-Lisa [phone] [address] P[place]/POS [place] t [id number] [place] [address] documented as of this encounter Advance Directives Name Relationship Healthcare Agent Relationship Co mmunication Tanya Jagdeep Mother Primary healthcare agent
--- OUTSIDE RECORDS SUMMARY | 2020-02-24 00:55 | XMS REPORT | Summary of Care ---
:1995 Author Organization [facility] Address [address] [place] [address] Care Team Providers Name Role Phone Latisha Campbell Primary Care Provider Encounter Details Date Type Department Care Team Description 11/02/2019 Orders Only [facility] Doctor Unassigned, No [address] [facility] [place] [address] [address] [place] [id number] Allergies No Known Allergiesdocumented as of this [...] filedocumented in this encounter Plan of Treatment Date Type Specialty Care Team Description 05/05/2020 Office Visit [facility] 3[facility] 05/05/2020 Office Visit [facility]ell[facility] Latisha Campbell, CAR REPAIRER HELPER [address] [place], [place] [address] [phone] Health Maintenance Due Date Last Done Comments [...] Name Priority Date/Time Associated Diagnosis Comme nts [id number] CONSENT Routine 11/02/2019 12:01 AM MEDICAL AUDITOR documented in this encounter Results Not on filedocumented in this encounter Insurance Payer Benefit Plan Subscriber ID Effective Dates Phone Address Type / Group [facility] [id number] 2017-Lisa [phone] [address] [place] P[place] t [id number] [place] [address] documented as of this encounter Advance Directives Name Relationship Healthcare Agent Relationship Co mmunication Tanya Jagdeep Mother Primary healthcare agent
--- OUTSIDE RECORDS SUMMARY | 2020-02-24 00:55 | XMS REPORT | Summary of Care ---
:1995 Author Organization [facility] Address [address] [place] [address] Care Team Providers Name Role Phone Latisha Campbell PERSONAL INJURY ATTORNEY Primary Care Provider Reason for Visit Reason Comments Vaginal Bleeding Encounter Details Date Type Department Care Team Description 11/02/2019 Office Visit [facility]- Latisha Campbell, Vag inal spotting [facility] (Primary Dx) [address] [place], [place] [address] [place] [address] [phone] Allergies No Known Allergiesdocumented as of this [...] Comments Blood Pressure 98/64 11/02/2019 11:00 AM BOATHOUSE KEEPER Pulse 65 11/02/2019 11:00 AM BOATHOUSE KEEPER Temperature 36.3 C (97.3 F) 11/02/2019 11:00 AM BOATHOUSE KEEPER Respiratory Rate 18 11/02/2019 11:00 AM BOATHOUSE KEEPER Oxygen Saturation - - Inhaled Oxygen Concentration - - Weight 100.9 kg (222 lb 6.4 oz) 11/02/2019 11:00 AM BOATHOUSE KEEPER Height 165.1 cm (5' 5") 11/02/2019 11:00 AM BOATHOUSE KEEPER Body Mass Index 37.01 11/02/2019 11:00 AM BOATHOUSE KEEPER documented in this encounter Progress Notes Latisha Campbell, PERSONAL INJURY ATTORNEY - 11/02/2019 10:15 AM CST Chief complaint: [...] file Gets together: Not on file Attends pentecostal service: Not on file Active member of [...] feels safe at home. Pt lives alone. Restorationism preference none. Social History Substance and Sexual [...] more than 50% of the visit time. HOUSE KEEPER documented in this encounter Plan of Treatment Date Type Specialty Care Team Description 05/05/2020 Office Visit OB Satellites , [facility] Room 05/05/2020 Office Visit OB Satellites Latisha Campbell FNP [address] [place], [place] [address] [phone] Name Type Priority Associated Diagnoses Date/Ti me GC & CHLAMYDIA AMPLIFIED LAB Routine Vaginal spotting 11/02/2019 1:11 PM BOATHOUSE KEEPER ASSAY TRICHOMONAS AMPLIFIED LAB Routine Vaginal spotting 1:11 PM BOATHOUSE KEEPER ASSAY Health Maintenance Due Date Last Done [...] PM Vaginal spotti ng Results for this BOATHOUSE KEEPER procedure are i n the results section. documented in this encounter Results POCT TEST (11/02/2019 1:11 PM BOATHOUSE KEEPER) Pathologist Sig nature POCT PREG Negative On board controls acceptable Yes with C Line POCT PREG LOT # POCT PREG TEST DATE Specimen Urine - URINE, CLEAN CATCH documented in this encounter Visit Diagnoses Diagnosis Vaginal spotting - Primary Other specified noninflammatory disorder of vagina documented in this encounter Insurance Payer Benefit Plan Subscriber ID Effective Dates Phone Address Type / Group [facility] [id number] 2017-Lisa [phone] [address] PPO/POS [place] t [id number] [place] [address] documented as of this encounter Advance Directives Name Relationship Healthcare Agent Relationship Co mmunication Tanya Jagdeep Mother Primary healthcare agent
--- NOTE | 2020-02-24 01:32 | EDPHYS ---
Physician Documentation [facility] Name: Marquita Gannon Age: 24 yrs Sex: Female : 1995 Arrival Date: 02/24/2020 Time: 00:52 Bed 16 Private MD: ED Physician Juan C Goodson HPI: 02/23 00:59 This 24 yrs old Female presents to ER via Wheelchair with complaints of Foot jr8 Injury - Ankle. 00:59 The patient presents with pain, tenderness. The complaints affect the dorsum of right jr8 foot. Context: The problem was sustained outdoors, resulted from playing sports. Onset: The symptoms/episode began/occurred acutely, today. Modifying factors: The symptoms are alleviated by nothing. the symptoms are aggravated by movement, weight bearing. Associated signs and symptoms: The patient has no apparent associated signs or symptoms. Severity of symptoms: At their worst the symptoms were mild, in the emergency department the symptoms are unchanged. The patient has not experienced similar symptoms in the past. The patient has not recently seen a physician. Stated that she was playing [employer] and was repetitively kicking the ball. Now has acute pain to dorsal foot and trouble weight bearing on it. PHONE BANKER: 00:59 LMP 02/07/2020 sg Historical: - Allergies: 00:59 No Known Allergies; sg - Home Meds: 00:59 None [Active]; sg - PMHx: 00:59 None; sg - PSHx: 00:59 None; sg - Immunization history:: Adult Immunizations up to date. - Social history:: Smoking status: Patient denies any tobacco usage or history of. ROS: 00:59 Eyes: Negative for injury, pain, redness, and discharge, ENT: Negative for injury, jr8 pain, and discharge, Neck: Negative for injury, pain, and swelling, Cardiovascular: Negative for chest pain, palpitations, and edema, Respiratory: Negative for shortness of breath, cough, wheezing, and pleuritic chest pain, Abdomen/GI: Negative for abdominal pain, nausea, vomiting, diarrhea, and constipation, Back: Negative for injury and pain, Skin: Negative for injury, rash, and discoloration, Neuro: Negative for headache, weakness, numbness, tingling, and seizure. 00:59 MS/extremity: Positive for pain, tenderness, of the dorsum of right foot. Exam: 00:59 Constitutional: This is a well developed, well nourished patient who is awake, alert, jr8 and in no acute distress. Cardiovascular: Regular rate and rhythm with a normal S1 and S2. No gallops, murmurs, or rubs. Normal PMI, no JVD. No pulse deficits. Respiratory: Lungs have equal breath sounds bilaterally, clear to auscultation and percussion. No rales, rhonchi or wheezes noted. No increased work of breathing, no retractions or nasal flaring. Skin: Warm, dry with normal turgor. Normal color with no rashes, no lesions, and no evidence of cellulitis. Neuro: Awake and alert, GCS 15, oriented to person, place, time, and situation. Cranial nerves II-XII grossly intact. Motor strength 5/5 in all extremities. Sensory grossly intact. Cerebellar exam normal. Normal gait. 00:59 Musculoskeletal/extremity: Extremities: grossly normal except: noted in the dorsum of right foot: pain, tenderness, over the metatarsals of 4th and 5th digits. No bruising or swelling noted., ROM: intact in all extremities, full active range of motion, full passive range of motion, limited active range of motion due to pain, limited passive range of motion due to pain, Circulation is intact in all extremities. Sensation intact. Vital Signs: 00:59 BP 110 / 67; Pulse 77; Resp 18; Temp 98.7; Pulse Ox 100% on R/A; Weight 90.72 kg; mg2 Height 5 ft. 5 in. (165.10 cm); 01:51 BP 115 / 85; Pulse 70; Resp 18; Temp 98; Pulse Ox 100% on R/A; mg2 00:59 Body Mass Index 33.28 (90.72 kg, 165.10 cm) mg2 MDM: 00:59 Patient medically screened. jr8 00:59 Data reviewed: vital signs, nurses notes, radiologic studies, plain films. Data jr8 interpreted: Pulse oximetry: on room air is 100 %. Interpretation: normal. Counseling: I had a detailed discussion with the patient and/or guardian regarding: the historical points, exam findings, and any diagnostic results supporting the discharge/admit diagnosis, radiology results, the need for outpatient follow up, a orthopedic surgeon, to return to the emergency department if symptoms worsen or persist or if there are any questions or concerns that arise at home. 02/23 00:59 Order name: XRAY Foot RIGHT 3 View jr8 Administered Medications: No medications were administered Disposition: 04:41 Co-signature as Attending Physician, Juan C Goodson MD I agree with the assessment and tw4 plan of care. Disposition: 02/24/20 01:31 Discharged to Home. Impression: Sprain of foot. - Condition is Stable. - Discharge Instructions: Foot Sprain. - Medication Reconciliation Form, Thank You Letter, Antibiotic Education, Prescription Opioid Use form. - Follow up: Dylan Jerez MD; When: 5 - 6 days; Reason: Recheck today's complaints, Continuance of care, Re-evaluation by your physician. - Problem is new. - Symptoms have improved. Signatures: Dispatcher [employer] EDMS Dylan Zazueta, RN RN Joe Fisher, PA PA jr8 Juan C Goodson MD MD tw4 Taye Del Cid RN RN mg2 Corrections: (The following items were deleted from the chart) 01:51 01:31 02/24/2020 01:31 Discharged to Home. Impression: Sprain of foot. Condition is mg2 Stable. Forms are Medication Reconciliation Form, Thank You Letter, Antibiotic Education, Prescription Opioid Use. Follow up: Dylan Jerez; When: 5 - 6 days; Reason: Recheck today's complaints, Continuance of care, Re-evaluation by your physician. Problem is new. Symptoms have improved. jr8
--- NOTE | 2020-02-24 01:32 | ER ---
Nurse's Notes [facility] Name: Marquita Gannon Age: 24 yrs Sex: Female : 1995 Arrival Date: 02/24/2020 Time: 00:52 Bed 16 Private MD: Diagnosis: Sprain of foot Presentation: 02/23 00:57 Chief complaint: Patient states: I was playing [employer] this evening, finished sg up the game around 2130 last night, reports having pain in the right ankle and right foot, denies any other injury or trauma at this time. Coronavirus screen: Proceed with normal triage. Ebola Screen: Patient negative for fever greater than or equal to 101.5 degrees Fahrenheit, and additional compatible Ebola Virus Disease symptoms Patient denies exposure to infectious person. Patient denies travel to an Ebola-affected area in the 21 days before illness onset. No symptoms or risks identified at this time. Initial Sepsis Screen: Does the patient meet any 2 criteria? No. Patient's initial sepsis screen is negative. Does the patient have a suspected source of infection? No. Patient's initial sepsis screen is negative. Risk Assessment: Do you want to hurt yourself or someone else? Patient reports no desire to harm self or others. Onset of symptoms was February 24, 2020. Care prior to arrival: None. Transition of care: patient was not received from another setting of care. 00:57 Method Of Arrival: Wheelchair 00:57 Acuity: EMEKA 4 sg SUIT ATTENDANT: 00:59 LMP 02/07/2020 sg Historical: - Allergies: 00:59 No Known Allergies; sg - Home Meds: 00:59 None [Active]; sg - PMHx: 00:59 None; sg - PSHx: 00:59 None; sg - Immunization history:: Adult Immunizations up to date. - Social history:: Smoking status: Patient denies any tobacco usage or history of. Screenin:31 Abuse screen: Denies threats or abuse. Denies injuries from another. Nutritional mg2 screening: No deficits noted. Tuberculosis screening: No symptoms or risk factors identified. Fall Risk Gait- Weak (10 pts.). Assessment: 01:15 General: Appears in no apparent distress. comfortable, Behavior is calm, cooperative. mg2 Pain: Complains of pain in dorsum of right foot. Neuro: Level of Consciousness is awake, alert, obeys commands, Oriented to person, place, time, situation. Cardiovascular: Capillary refill < 3 seconds Patient's skin is warm and dry. Respiratory: Airway is patent Respiratory effort is even, unlabored. GI: No deficits noted. : No deficits noted. EENT: No deficits noted. Derm: Skin is intact, is healthy with good turgor, Skin is pink, warm \T\ dry. normal. Musculoskeletal: Circulation, motion, and sensation intact. Capillary refill < 3 seconds. Vital Signs: 00:59 BP 110 / 67; Pulse 77; Resp 18; Temp 98.7; Pulse Ox 100% on R/A; Weight 90.72 kg; mg2 Height 5 ft. 5 in. (165.10 cm); 01:51 BP 115 / 85; Pulse 70; Resp 18; Temp 98; Pulse Ox 100% on R/A; mg2 00:59 Body Mass Index 33.28 (90.72 kg, 165.10 cm) mg2 ED Course: 00:52 Patient arrived in ED. ds1 00:54 Taye Del Cid, MATT is Primary Nurse. mg2 00:58 Triage completed. sg 00:59 Joe Fisher PA is PHCP. jr8 00:59 Juan C Goodson MD is Attending Physician. jr8 00:59 Arm band placed on. sg 01:12 XRAY Foot RIGHT 3 View In Process Unspecified. EDMS 01:26 Dylan Jerez MD is Referral Physician. jr8 01:30 Patient has correct armband on for positive identification. Pulse ox on. NIBP on. Door mg2 closed. Warm blanket given. Ice pack to injury. 01:30 No provider procedures requiring assistance completed. Patient did not have IV access mg2 during this emergency room visit. Administered Medications: No medications were administered Outcome: 01:31 Discharge ordered by . jr8 01:51 Discharged to home via wheelchair. mg2 01:51 Condition: stable 01:51 Discharge instructions given to patient, Instructed on discharge instructions, follow up and referral plans. Demonstrated understanding of instructions, follow-up care. 01:51 Patient left the ED. mg2 Signatures: Dispatcher [employer] EDMS Dylan Zazueta RN RN sg Sanford, Demi ds1 Joe Fisher PA PA jr8 Gardose, Taye, RN RN mg2
[2020-02-24 01:56] VITALS: O2SAT 100
[2020-02-24 01:57] VITALS: BP 115/85; TEMP 98
--- NOTE | 2020-02-24 07:41 | RAD REPORT ---
EXAM DESCRIPTION: RAD - Foot Right 3 View - 02/24/2020 1:13 am CLINICAL HISTORY: PAIN COMPARISON: No comparisons FINDINGS: No fracture, dislocation or periosteal reaction. No acute or destructive bone process. No air or foreign body in the soft tissues. IMPRESSION: Negative right foot examination.
== END 2020-02-24 01:51 | disposition home or self-care (01) ==
LOC: ER 00:51
DX: S93.601A Unspecified sprain of right foot, initial encounter (principal); W21.02XA Struck by soccer ball, initial encounter; Y93.66 Activity, soccer; Y92.9 Unspecified place or not applicable
CPT/HCPCS: 99283

== ENCOUNTER → 2023-11-27 | Emergency (ER) | payer OTHER ==
[~2023-11-27] MED LIST: IBUPROFEN 400 MG TAB ONE
--- OUTSIDE RECORDS SUMMARY | 2023-11-27 03:20 | XMS REPORT | Continuity of Care Document ---
Author Name Unknown Address [address] [facility]. [address] [place] [address] [facility] thconnect Address [address] [facility]. [address] [place] [address] Care Team Providers Care Truck Service Technician Name Role Phone Latisha Amaro Primary Care Physician + [phone] Doctor Unassigned, [place] Attending Clinician U LATISHA Romano Attending Clinician Unavailabl e Lab, Adc Fam Pob I Attending Clinician Jenny Faust MD Attending Clinician [phone] Estefany Floyd Attending Clinician + [phone] Ever Abad DO Attending Clinician [phone] Latisha Amaro Attending Clinician [phone] Ting Vogt Attending Clinician [phone] TING DONOHUE Attending Clinician Marco Bunch RN Attending Clinician Juan ross Payers Payer Name Policy Type Policy Number Effective Date Expirati on Date Source Problems Condition Name Condition Details Condition Category Status Onset Date Resolution Date Last Treatment Date Treating Clinician Comments Source Nexplanon in place Nexplanon in place Disease Active 01-13 00:00: 00 [facility] Nexplanon insertion Nexplanon insertion Disease Active 8 00:00: 00 Overview: Removal date 05/08/20 [facility] Morbid obesity, unspecifie d obesity type Morbid obesity, unspecifie d obesity type Disease Active 04-23 00:00: 00 [facility] Need for HPV vaccine Need for HPV vaccine Disease Active 04-23 00:00: 00 [facility] Allergies, Adverse Reactions, Alerts Allergy Name Allergy Type Status Severity Reaction(s) Onset Date Inactive Date Treating Clinician Comments Source NO KNOWN ALLERGIE S Drug Class Active [facility] Social History Social Habit Start Date Stop Date Quantity Comments Source [facility] SARS-CoV-2 (event) 2021-03-22 00:00:00 2021-04-21 13:09:00 Not sure [facility] Alcohol intake 2020-08-15 00:00:00 2020-08-15 00:00:00 Ex-drinker (finding) [facility] History of Social function 2020-05-06 00:00:00 2020-05-06 00:00:00 [facility] Alcohol Comment 2017-04-23 00:00:00 2017-04-23 00:00:00 socially [facility] Tobacco use and exposure 2017-04-23 00:00:00 2017-04-23 00:00:00 Smokeless tobacco non-user [facility] Sex Assigned At 1995 00:00:00 1995 00:00:00 [facility] Smoking Status Start Date Stop Date Source Never smoked tobacco [facility] Medications Ordered Medication Name Filled Medication Name Start Date Stop Date Current Medication? Ordering Clinician Indication Dosage Frequency Signature (SIG) Comments Components Source estradiol 2 mg tablet 05-04 00:00: 00 05-26 04:59 :00 No [id number] 2mg Take 1 tablet by mouth daily for 21 days. [facility] estradiol 2 mg tablet 05-04 00:00: 00 05-26 04:59 :00 No [id number] 2mg Take 1 tablet by mouth daily for 21 days. [facility] estradiol 2 mg tablet 05-04 00:00: 00 05-26 04:59 :00 No [id number] 2mg Take 1 tablet by mouth daily for 21 days. [facility] No known medications No [facility] No known medications No [facility] No known medications No [facility] No known medications No [facility] No known medications No [facility] No known medications No [facility] No known medications No [facility] No known medications No [facility] No known medications No [facility] No known medications No [facility] No known medications No Un [facility] No known medications No [facility] No known medications No [facility] No [facility] medications No [facility] No known medications No [facility] No known medications No Un [facility] No known medications No [facility] No known medications No Un [facility] Immunizations Ordered Immunization Name Filled Immunization Name Date Status Comments Source HPV9 2019-02-24 00:00:00 Completed [facility] HPV9 2019-02-24 00:00:00 Completed [facility] HPV9 2019-02-24 00:00:00 Completed [facility] HPV9 2019-02-24 00:00:00 Completed [facility] HPV9 2019-02-24 00:00:00 Completed [facility] HPV9 2019-02-24 00:00:00 Completed [facility] HPV9 2019-02-24 00:00:00 Completed [facility] HPV9 2019-02-24 00:00:00 Completed [facility] HPV9 2019-02-24 00:00:00 Completed [facility] HPV9 2019-02-24 00:00:00 Completed [facility] HPV9 2019-02-24 00:00:00 Completed [facility] HPV9 2019-02-24 00:00:00 Completed [facility] HPV9 2019-02-24 00:00:00 Completed [facility] HPV9 2019-02-24 00:00:00 Completed [facility] HPV9 2019-02-24 00:00:00 Completed [facility] HPV9 2019-02-24 00:00:00 Completed [facility] HPV9 2019-02-24 00:00:00 Completed [facility] HPV9 2019-02-24 00:00:00 Completed [facility] HPV9 2019-02-24 00:00:00 Completed [facility] HPV9 2019-02-24 00:00:00 Completed [facility] HPV9 2019-02-24 00:00:00 Completed [facility] HPV9 2018-04-28 00:00:00 Completed [facility] HPV9 2018-04-28 00:00:00 Completed [facility] HPV9 2018-04-28 00:00:00 Completed [facility] HPV9 2018-04-28 00:00:00 Completed [facility] HPV9 2018-04-28 00:00:00 Completed [facility] HPV9 2018-04-28 00:00:00 Completed [facility] HPV9 2018-04-28 00:00:00 Completed [facility] HPV9 2018-04-28 00:00:00 Completed [facility] HPV9 2018-04-28 00:00:00 Completed [facility] HPV9 2018-04-28 00:00:00 Completed [facility] HPV9 2018-04-28 00:00:00 Completed [facility] HPV9 2018-04-28 00:00:00 Completed [facility] HPV9 2018-04-28 00:00:00 Completed [facility] HPV9 2018-04-28 00:00:00 Completed [facility] HPV9 2018-04-28 00:00:00 Completed [facility] HPV9 2018-04-28 00:00:00 Completed [facility] HPV9 2018-04-28 00:00:00 Completed [facility] HPV9 2018-04-28 00:00:00 Completed [facility] HPV9 2018-04-28 00:00:00 Completed [facility] HPV9 2018-04-28 00:00:00 Completed [facility] HPV9 2018-04-28 00:00:00 Completed [facility] HPV9 2017-04-23 00:00:00 Completed [facility] HPV9 2017-04-23 00:00:00 Completed [facility] HPV9 2017-04-23 00:00:00 Completed [facility] HPV9 2017-04-23 00:00:00 Completed [facility] HPV9 2017-04-23 00:00:00 Completed [facility] HPV9 2017-04-23 00:00:00 Completed [facility] HPV9 2017-04-23 00:00:00 Completed [facility] HPV9 2017-04-23 00:00:00 Completed [facility] HPV9 2017-04-23 00:00:00 Completed [facility] HPV9 2017-04-23 00:00:00 Completed [facility] HPV9 2017-04-23 00:00:00 Completed [facility] HPV9 2017-04-23 00:00:00 Completed [facility] HPV9 2017-04-23 00:00:00 Completed [facility] HPV9 2017-04-23 00:00:00 Completed [facility] HPV9 2017-04-23 00:00:00 Completed [facility] HPV9 2017-04-23 00:00:00 Completed [facility] HPV9 2017-04-23 00:00:00 Completed [facility] HPV9 2017-04-23 00:00:00 Completed [facility] HPV9 2017-04-23 00:00:00 Completed [facility] HPV9 2017-04-23 00:00:00 Completed [facility] HPV9 2017-04-23 00:00:00 Completed [facility] Meningococcal Polysaccharide (groups A, C, Y and W-135) conjugate vaccine (MCV4P) 2016-03-06 00:00:00 Completed [facility] Meningococcal Polysaccharide (groups A, C, Y and W-135) conjugate vaccine (MCV4P) 2016-03-06 00:00:00 Completed [facility] Meningococcal Polysaccharide (groups A, C, Y and W-135) conjugate vaccine (MCV4P) 2016-03-06 00:00:00 Completed [facility] Meningococcal Polysaccharide (groups A, C, Y and W-135) conjugate vaccine (MCV4P) 2016-03-06 00:00:00 Completed [facility] Meningococcal Polysaccharide (groups A, C, Y and W-135) conjugate vaccine (MCV4P) 2016-03-06 00:00:00 Completed [facility] Meningococcal Polysaccharide (groups A, C, Y and W-135) conjugate vaccine (MCV4P) 2016-03-06 00:00:00 Completed [facility] Meningococcal Polysaccharide (groups A, C, Y and W-135) conjugate vaccine (MCV4P) 2016-03-06 00:00:00 Completed [facility] Meningococcal Polysaccharide (groups A, C, Y and W-135) conjugate vaccine (MCV4P) 2016-03-06 00:00:00 Completed [facility] Meningococcal Polysaccharide (groups A, C, Y and W-135) conjugate vaccine (MCV4P) 2016-03-06 00:00:00 Completed [facility] Meningococcal Polysaccharide (groups A, C, Y and W-135) conjugate vaccine (MCV4P) 2016-03-06 00:00:00 Completed [facility] Meningococcal Polysaccharide (groups A, C, Y and W-135) conjugate vaccine (MCV4P) 2016-03-06 00:00:00 Completed [facility] Meningococcal Polysaccharide (groups A, C, Y and W-135) conjugate vaccine (MCV4P) 2016-03-06 00:00:00 Completed [facility] Meningococcal Polysaccharide (groups A, C, Y and W-135) conjugate vaccine (MCV4P) 2016-03-06 00:00:00 Completed [facility] Meningococcal Polysaccharide (groups A, C, Y and W-135) conjugate vaccine (MCV4P) 2016-03-06 00:00:00 Completed [facility] Meningococcal Polysaccharide (groups A, C, Y and W-135) conjugate vaccine (MCV4P) 2016-03-06 00:00:00 Completed [facility] Meningococcal Polysaccharide (groups A, C, Y and W-135) conjugate vaccine (MCV4P) 2016-03-06 00:00:00 Completed [facility] Meningococcal Polysaccharide (groups A, C, Y and W-135) conjugate vaccine (MCV4P) 2016-03-06 00:00:00 Completed [facility] Meningococcal Polysaccharide (groups A, C, Y and W-135) conjugate vaccine (MCV4P) 2016-03-06 00:00:00 Completed [facility] Meningococcal Polysaccharide (groups A, C, Y and W-135) conjugate vaccine (MCV4P) 2016-03-06 00:00:00 Completed [facility] Meningococcal Polysaccharide (groups A, C, Y and W-135) conjugate vaccine (MCV4P) 2016-03-06 00:00:00 Completed [facility] Meningococcal Polysaccharide (groups A, C, Y and W-135) conjugate vaccine (MCV4P) 2016-03-06 00:00:00 Completed [facility] Tdap 2011-10-06 00:00:00 Completed [facility] Tdap 2011-10-06 00:00:00 Completed [facility] Tdap 2011-10-06 00:00:00 Completed [facility] Tdap 2011-10-06 00:00:00 Completed [facility] TDAP 2011-10-06 00:00:00 Completed [facility] TDAP 2011-10-06 00:00:00 Completed [facility] TDAP 2011-10-06 00:00:00 Completed [facility] TDAP 2011-10-06 00:00:00 Completed [facility] TDAP 2011-10-06 00:00:00 Completed [facility] TDAP 2011-10-06 00:00:00 Completed [facility] TDAP 2011-10-06 00:00:00 Completed [facility] TDAP 2011-10-06 00:00:00 Completed [facility] TDAP 2011-10-06 00:00:00 Completed [facility] TDAP 2011-10-06 00:00:00 Completed [facility] Tdap 2011-10-06 00:00:00 Completed [facility] Tdap 2011-10-06 00:00:00 Completed [facility] Tdap 2011-10-06 00:00:00 Completed [facility] Tdap 2011-10-06 00:00:00 Completed [facility] Tdap 2011-10-06 00:00:00 Completed [facility] Tdap 2011-10-06 00:00:00 Completed [facility] Tdap 2011-10-06 00:00:00 Completed [facility] Meningococcal Polysaccharide (groups A, C, Y and W-135) conjugate vaccine (MCV4P) Unknown Completed [facility] TDAP Unknown Completed [facility] HPV9 Unknown Completed [facility] HPV9 Unknown Completed [facility] HPV9 Unknown Completed [facility] Meningococcal Polysaccharide (groups A, C, Y and W-135) conjugate vaccine (MCV4P) Unknown Completed [facility] TDAP Unknown Completed [facility] HPV9 Unknown Completed [facility] HPV9 Unknown Completed [facility] HPV9 Unknown Completed [facility] Vital Signs Vital Name Observation Time Observation Value Comments S ource Systolic blood pressure 2020-08-15 16:50:00 107 mm[Hg] [facility] Diastolic blood pressure 2020-08-15 16:50:00 69 mm[Hg] [facility] Heart rate 2020-08-15 16:50:00 58 /min [facility] Body temperature 2020-08-15 16:50:00 36.39 Lucy [facility] Respiratory rate 2020-08-15 16:50:00 16 /min [facility] Body height 2020-08-15 16:50:00 165.1 cm [facility] Body weight 2020-08-15 16:50:00 89.472 kg [facility] BMI 2020-08-15 16:50:00 32.82 kg/m2 [facility] Systolic blood pressure 2019-11-02 17:00:00 98 mm[Hg] [facility] Diastolic blood pressure 2019-11-02 17:00:00 64 mm[Hg] [facility] Heart rate 2019-11-02 17:00:00 65 /min [facility] Body temperature 2019-11-02 17:00:00 36.28 Lucy [facility] Respiratory rate 2019-11-02 17:00:00 18 /min [facility] Body height 2019-11-02 17:00:00 165.1 cm [facility] Body weight 2019-11-02 17:00:00 100.88 kg [facility] BMI 2019-11-02 17:00:00 37.01 kg/m2 [facility] Systolic blood pressure 2019-11-02 17:00:00 98 mm[Hg] [facility] Diastolic blood pressure 2019-11-02 17:00:00 64 mm[Hg] [facility] Heart rate 2019-11-02 17:00:00 65 /min [facility] Body temperature 2019-11-02 17:00:00 36.28 Lucy [facility] Respiratory rate 2019-11-02 17:00:00 18 /min [facility] Body height 2019-11-02 17:00:00 165.1 cm [facility] Body weight 2019-11-02 17:00:00 100.88 kg [facility] BMI 2019-11-02 17:00:00 37.01 kg/m2 [facility] Systolic blood pressure 2019-06-01 15:55:00 120 mm[Hg] [facility] Diastolic blood pressure 2019-06-01 15:55:00 74 mm[Hg] [facility] Heart rate 2019-06-01 15:55:00 61 /min [facility] Body temperature 2019-06-01 15:55:00 36.72 Lucy [facility] Respiratory rate 2019-06-01 15:55:00 16 /min [facility] Body height 2019-06-01 15:55:00 165.1 cm [facility] Body weight 2019-06-01 15:55:00 115.724 kg [facility] BMI 2019-06-01 15:55:00 42.46 kg/m2 [facility] Systolic blood pressure 2019-05-04 14:21:00 101 mm[Hg] [facility] Diastolic blood pressure 2019-05-04 14:21:00 69 mm[Hg] [facility] Heart rate 2019-05-04 14:21:00 72 /min Un[facility] Body temperature 2019-05-04 14:21:00 36.5 Lucy [facility] Respiratory rate 2019-05-04 14:21:00 16 /min [facility] Body height 2019-05-04 14:21:00 165.1 cm [facility] Body weight 2019-05-04 14:21:00 119.863 kg [facility] BMI 2019-05-04 14:21:00 43.97 kg/m2 [facility] Procedures Procedure Date / Time Performed Performing Clinicia n Source EKG (SCANNED DOCUMENTS) 2023-07-27 05:01:00 Doctor Unassigned, [place] [facility] ASSIGNMENT OF BENEFITS 2020-08-15 16:16:48 Docto r Unassigned, [place] [facility] POCT TEST 2019-11-02 19:11:00 Eduar Ji [facility] [id number] CONSENT 2019-11-02 06:01:00 Doctor Unas signed, [place] [facility] DISCLOSURE AND CONSENT, MEDICAL AND SURGICAL PROCEDURES 2019-06-01 05:01:00 Doctor Unassigned, [place] [facility] NOTICE OF PRIVACY PRACTICES 2019-05-04 13:57:45 Doctor Unassigned, [place] [facility] Encounters Start Date/Time End Date/Time Encounter Type Admission Type Attending [facility] Care Department Encounter ID Source 2023-07-27 00:00:00 2023-07-27 00:00:00 Orders Only Doctor Unassigned, [place] [facility] [id number] 350.1.13.10 4.2.7.2.686 [id number] [facility] 2023-05-07 08:23:06 2023-05-07 08:23:06 Outpatient SFA SFA [id number] Jorge Perry Jorge 2023-02-13 09:39:08 2023-02-13 09:39:08 Outpatient SFA SFA [id number] Jorge Perry Jorge 2023-02-05 13:35:06 2023-02-05 13:35:06 Outpatient SFA SFA [id number] Jorge F Jorge 2022-08-28 14:22:30 2022-08-28 14:22:30 Outpatient SFA SFA [id number] Jorge Patel 2021-09-21 15:15:00 2021-09-21 15:15:00 Outpatient R LATISHA JI [facility] [id number] [facility] 2021-08-16 09:30:00 2021-08-16 09:30:00 Outpatient R LATISHA JI [facility] [id number] [facility] 2021-04-21 12:54:34 2021-04-21 13:14:34 Laboratory Only Lab, Adc Fam Pob Antwon Wen, Estefany Gaona [facility] [address] 1.840.114 350.1.13.10 4.2.7.2.686 [id number] [facility] 2021-04-21 13:00:00 2021-04-21 13:00:00 Outpatient R [facility] [id number] [facility] 2020-12-26 00:00:00 2020-12-26 00:00:00 Patient Outreach Ever Abad [facility] 1.840.114 350.1.13.10 4.2.7.2.686 [id number] [facility] 2020-08-15 10:28:38 2020-08-15 11:17:26 Office Visit Latisha Ji [facility] DOCENT COORDINATOR [facility] 1.840.114 350.1.13.10 4.2.7.2.686 [id number] [facility] 2020-08-15 10:45:00 2020-08-15 10:45:00 Outpatient R LATISHA JI [facility] [id number] [facility] 2020-08-15 00:00:00 2020-08-15 00:00:00 Orders Only Doctor Unassigned, [place] [facility] .840.114 350.1.13.10 4.2.7.2.686 [id number] [facility] 2020-05-07 00:00:00 2020-05-07 00:00:00 Patient Secure Msg Doctor Unassigned, [place] [facility] 1.84.114 350.1.13.10 4.2.7.2.686 [id number] [facility] 2020-05-05 13:15:00 2020-05-05 13:15:00 Outpatient LATISHA HU [facility] [id number] [facility] 2020-05-05 00:00:00 2020-05-05 00:00:00 Telephone Adrian Latisha Sally [facility] 1.84.114 350.1.13.10 4.2.7.2.686 [id number] [facility] 2020-05-04 15:45:00 2020-05-04 15:45:00 Outpatient LATISHA HU [facility] [id number] [facility] 2020-05-04 08:34:51 2020-05-04 08:54:51 Laboratory Only Lab, Adc Fam Pob [facility] 1.84.114 350.1.13.10 4.2.7.2.686 [id number] [facility] 2020-05-04 08:40:00 2020-05-04 08:40:00 [id number] 2020-04-12 00:00:00 2020-04-12 00:00:00 Telephone Marco Rodriguez [facility] 1.840.114 350.1.13.10 4.2.7.2.686 [id number] [facility] 2020-04-11 13:10:49 2020-04-11 13:30:49 Laboratory Only Lab, Adc Fam Pob I [facility] 1.114 350.1.13.10 4.2.7.2.686 [id number] [facility] 2020-04-11 13:20:00 2020-04-11 13:20:00 Outpatient Vianney AL DONOHUEA [facility] [id number] [facility] 2019-11-02 10:37:08 2019-11-02 12:01:18 Office Visit Latisha Ji [facility] DOCENT COORDINATOR [facility] 1.2.840.114 350.1.13.10 4.2.7.2.686 [id number] [facility] 2019-11-02 10:37:08 2019-11-02 12:01:18 Office Visit Latisha Ji [facility] 1.2.840.114 350.1.13.10 4.2.7.2.686 [id number] 2019-11-02 00:00:00 2019-11-02 00:00:00 Orders Only Doctor Unassigned, [place] [facility] 1.2.840.114 350.1.13.10 4.2.7.2.686 [id number] [facility] 2019-06-01 10:36:26 2019-06-01 11:14:16 Office Visit Latisha Ji [facility] 1.2.840.114 350.1.13.10 4.2.7.2.686 [id number] [facility] 2019-06-01 00:00:00 2019-06-01 00:00:00 Letter (Out) Latisha Ji [facility] 1.2.840.114 350.1.13.10 4.2.7.2.686 [id number] [facility] 2019-06-01 00:00:00 2019-06-01 00:00:00 Orders Only Doctor Unassigned, [place] [facility] 1.2.840.114 350.1.13.10 4.2.7.2.686 [id number] [facility] 2019-05-04 09:13:26 2019-05-04 09:55:52 Office Visit Latisha Ji Sally [facility] DOCENT COORDINATOR [facility] 1..840.114 350.1.13.10 4.2.7.2.686 [id number] [facility] 2019-05-04 00:00:00 2019-05-04 00:00:00 Orders Only Doctor Unassigned, [place] [facility] 1.840.114 350.1.13.10 4.2.7.2.686 [id number] [facility] Results Test Description Test Time Test Comments Results Result Co mments Source HPV HIGH RISK WITH GENOTYPE, [id number] 20:01:50* Test Item Value Reference Range Interpretation Comme nts HPV HIGH RISK INTERP (test code = 56505) POSITIVE NEGATIVE A HPV 16 (test code = 78090) NEGATIVE HPV 18 (test code = 06678) NEGATIVE HPV, HR, OTHER GENOTYPES (test code = 43878) POSITIVE A Testing methodol ogy is real-time PCR utilizing hydrolysis probes with the Pat[employer] Alexander 4800 system. The test individually detects genotypes 16 and 18, as well as the other 12 high risk types (31,33,35,39,45,51,52,56 ,58,59,66,68). The expected result is negative. A negative result does not rule out the presence of HPV not included in the genotype set, a low level of infection or specimen sampling error. VAGINAL PATHOGENS DNA [id number] 15:58:30* Test Item Value Reference Range Interpretation Comme nts SMITA SPECIES (test code = 02908) NEGATIVE NEGATIVE G. VAGINALIS (test code = 54755) POSITIVE NEGATIVE A T. VAGINALIS (test code = 99679) NEGATIVE NEGATIVE Note: The BD Aff irm VPIII Microbial Identification Testis a DNA probe test intended for use in the detectionand identification of Smita species, Gardnerellavaginalis and Trichomonas vaginalis nucleic acid. CT/NG, NAAT, [id number] 11:43:27* Test Item Value Reference Range Interpretation Comme nts CHLAMYDIA, NAAT, THINPREP (test code = 50026) NEGATIVE NEGATIVE A negative resul t does not exclude low level infection, specimensampling error, or collection error. Testing is performed with the Pat[employer] Alexander 6800/8800 systems usingreal-time Polymerase Chain Reaction (PCR) method. GONORRHEA, NAAT, THINPREP (test code = 58406) NEGATIVE NEGATIVE A negative resul t does not exclude low level infection, specimensampling error, or collection error. Testing is performed with the [employer] Alexander 6800/8800 systems usingreal-time Polymerase Chain Reaction (PCR) method. UNLESS OTHERWISE INDICATED, ALL TESTING PERFORMED AT [facility] [address] [place] [address] STORE PLANNER: DAX VELAZQUEZ M.D. CLIA NUMBER [id number] [facility] [place]. [id number] HIV 1/2 4TH GEN, RFLX [id number] 06:45:40* Test Item Value Reference Range Interpretation Comme nts HIV 1/2 4TH GEN, RFLX CONF ( test code = 3514) NON-REACTIVE NON-REACTIVE HEPATITIS PANEL, [id number] 06:45:40* Test Item Value Reference Range Interpretation Comments HEPATITIS A TOTAL AB (test code = 2725) REACTIVE NON-REACTIVE A HEPATITIS B SURF AG (test code = 2739) NON-REACTIVE NON-REACTIVE HEP B CORE TOTAL AB (test code = 2729) NON-REACTIVE NON-REACTIVE HEPATITIS B SURFACE AB (test code = 2737) NON-REACTIVE NON-REACTIVE HEPATITIS C ANTIBODY (test code = 4675) NON-REACTIVE NON-REACTIVE INTERPRETATION HEPATITIS A: (test code = 2552) (NOTE) Hepatitis A sero logy consistent with past exposure or previousvaccination to hepatitis A virus. No evidence of current acutehepatitis A infection. INTERPRETATION HEPATITIS B: (test code = 11355) (NOTE) Hepatitis B sero logy shows no evidence of past exposure to orcurrent infection with hepatitis B virus. No evidence of hepatitis Bimmunization is identified. INTERPRETATION HEPATITIS C: (test code = 99932) (NOTE) Hepatitis C sero logy shows no evidence of exposure to hepatitisC virus at this time. It can take up to 12 months after exposure tothe hepatitis C virus for antibodies to become detectable in the blood in certain patients. HEPATITIS A [id number] 06:45:40* Test Item Value Reference Range Interpretation Comme nts HEPATITIS A IgM (test code = 2728) NON-REACTIVE NON-REACTIVE [facility] has i mportant pathology staff changes effective 12/04/2022. New pathology staff will provide uninterrupted, excellent patient care and clinical consultation. See URL: [email or web address]. UNLESS OTHERWISE INDICATED, ALL TESTING PERFORMED AT [facility] [address] [place] [address] STORE PLANNER: DAX VELAZQUEZ M.D. CLIA NUMBER [id number] [place]. [id number] RPR REFLEX TO T. PALLIDUM - [id number] 05:01:37* Test Item Value Reference Range Interpretation Comme nts RPR (test code = 30243) NON-REACTIVE NON-REACTIVE RPR TITER (test code = 3500) NOT INDIC. TITER NOT INDIC. CHLAMYDIA, NAAT, [id number] 17:12:51* Test Item Value Reference Range Interpretation Comme nts CHLAMYDIA, NAAT (test code = 48482) NEGATIVE NEGATIVE IMPORTANT NO ADRI: SEE ANNOUNCEMENT AT [email or web address] Note: Assay methodology is nucleic acid amplification by joiner helper mediated amplification (TMA) utilizing the Aptima Combo 2 Assay. GONORRHEA, NAAT, [id number] 17:12:51* Test Item Value Reference Range Interpretation Comme nts GONORRHEA, NAAT (test code = 44293) NEGATIVE NEGATIVE IMPORTANT NO ADRI: SEE ANNOUNCEMENT AT [email or web address] Note: Assay methodology is nucleic acid amplification by joiner helper mediated amplification (TMA) utilizing the Aptima Combo 2 Assay. UNLESS OTHERWISE INDICATED, ALL TESTING PERFORMED [facility] [address] [place] [id number] STORE PLANNER: CHAD CARR M.D. CLIA NUMBER [id number] [place]. [id number] VAGINAL PATHOGENS DNA [id number] 16:18:14* Test Item Value Reference Range Interpretation Comme nts SMITA SPECIES (test code = 08389) POSITIVE NEGATIVE A G. VAGINALIS (test code = 66427) POSITIVE NEGATIVE A T. VAGINALIS (test code = 58108) NEGATIVE NEGATIVE POCT [id number] 19:11:00* Test Item Value Reference Range Interpretation Comme nts POCT PREG (test code = 1605) Negative On board controls acceptable with C Line (test code = 3574) Yes POCT PREG LOT # (test code = 3575) POCT PREG TEST DATE ( test code = 3576) [id number] 19:11:00* Test Item Value Reference Range Interpretation Comme nts POCT PREG (test code = 1605) Negative On board controls acceptable with C Line (test code = 3574) Yes POCT PREG LOT # (test code = 3575) POCT PREG TEST DATE ( test code = 3576) [facility]
[2023-11-27 04:12] LABS: SARS-CoV-2 Antigen Rapid Res Negative (Negative)
--- NOTE | 2023-11-27 04:50 | ER ---
Nurse's Notes [facility] Name: Marquita Gannon Age: 28 yrs Sex: Female : 1995 Arrival Date: 11/27/2023 Time: 03:17 Bed 5 Private MD: Diagnosis: Influenza due to other identified influenza virus with other respiratory manifestations Presentation: 11/27 03:27 Chief complaint: Patient states: flu like symptoms since Friday. Fever, body aches, tm6 sore throat, chest pains, headaches. Coronavirus screen: Vaccine status: Patient reports receiving the 1st dose of the Covid vaccine. Ebola Screen: Patient negative for fever greater than or equal to 101.5 degrees Fahrenheit, and additional compatible Ebola Virus Disease symptoms Patient denies exposure to infectious person. Patient denies travel to an Ebola-affected area in the 21 days before illness onset. No symptoms or risks identified at this time. Initial Sepsis Screen: Does the patient meet any 2 criteria? No. Patient's initial sepsis screen is negative. Does the patient have a suspected source of infection? No. Patient's initial sepsis screen is negative. Risk Assessment: Do you want to hurt yourself or someone else? Patient reports no desire to harm self or others. Onset of symptoms was November 24, 2023. 03:27 Method Of Arrival: Ambulatory tm6 03:27 Acuity: EMEKA 4 tm6 Triage Assessment: 03:30 General: Appears in no apparent distress. Behavior is calm, cooperative. Pain: tm6 Complains of pain in face Pain currently is 8 out of 10 on a pain scale. Quality of pain is described as aching, heavy, Pain began 2-3 days ago. Is intermittent. EENT: Reports nasal congestion since Friday. Neuro: Level of Consciousness is awake, alert, obeys commands, Oriented to person, place, time, situation. Cardiovascular: Capillary refill < 3 seconds Patient's skin is warm and dry. Respiratory: Airway is patent Respiratory effort is even, unlabored, Respiratory pattern is regular, symmetrical. GI: Abdomen is round non-distended. : No signs and/or symptoms were reported regarding the genitourinary system. Derm: No signs and/or symptoms reported regarding the dermatologic system. Musculoskeletal: Parent/caregiver report the patient having body aches. Historical: - Allergies: 03:30 No Known Allergies; tm6 - PMHx: 03:30 None; tm6 - PSHx: 03:30 None; tm6 - Immunization history:: Adult Immunizations up to date, Client reports receiving the 1st dose of the Covid vaccine, Flu vaccine is not up to date. - Social history:: Smoking status: Patient denies any tobacco usage or history of. Patient uses alcohol, occasionally. Patient/guardian denies using street drugs. Screenin:53 [facility] ED Fall Risk Assessment (Adult) History of falling in the last 3 months, rv including since admission No falls in past 3 months (0 pts) Score/Fall Risk Level 0 - 2 = Low Risk Oriented to surroundings, Maintained a safe environment, Educated pt \T\ family on fall prevention, incl call for assistance when getting out of bed, Assessed \T\ reinforced patient's understanding of fall precautions. Abuse screen: Denies threats or abuse. Denies injuries from another. Nutritional screening: No deficits noted. Tuberculosis screening: No symptoms or risk factors identified. Assessment: 03:53 General: Appears comfortable, Behavior is calm, cooperative. Pain:. Neuro: Level of rv Consciousness is awake, alert, obeys commands, Oriented to person, place, time, situation, Reports headache. Cardiovascular: Capillary refill < 3 seconds Patient's skin is warm and dry. Respiratory: Airway is patent Respiratory effort is even, unlabored. GI: No signs and/or symptoms were reported involving the gastrointestinal system. : No signs and/or symptoms were reported regarding the genitourinary system. Derm: Skin is intact. 04:47 Reassessment: Patient appears in no apparent distress at this time. No changes from tm6 previously documented assessment. Patient and/or family updated on plan of care and expected duration. Pain level reassessed. Patient is alert, oriented x 3, equal unlabored respirations, skin warm/dry/pink. Vital Signs: 03:27 BP 125 / 83; Pulse 95; Resp 18; Temp 101.1(O); Pulse Ox 99% on R/A; Weight 122.47 kg; tm6 Height 5 ft. 4 in. ; Pain 8/10; 04:46 Pulse 88; Temp 100.6(O); Pulse Ox 98% on R/A; tm6 03:27 Body Mass Index 46.34 (122.47 kg, 162.56 cm) tm6 03:27 Pain Scale: Adult tm6 ED Course: 03:22 Patient arrived in ED. gm2 03:22 Marco Martinez PA is PHCP. cp 03:22 Marco Gresham MD is Attending Physician. cp 03:30 Triage completed. tm6 03:30 Arm band placed on left wrist. tm6 03:44 Andrew Lim, MATT is Primary Nurse. rv 03:53 Patient has correct armband on for positive identification. Client placed on continuous rv cardiac and pulse oximetry monitoring. NIBP monitoring applied. 03:54 No provider procedures requiring assistance completed. Patient did not have IV access rv during this emergency room visit. 05:04 Provided Education on: medication usage. tm6 Administered Medications: 03:53 Drug: Ibuprofen PO 800 mg PO once Route: PO; rv Medication: 03:53 VIS not applicable for this client. rv Outcome: 04:50 Discharge ordered by . cp 05:04 Discharged to home ambulatory, tm6 05:04 Condition: stable 05:04 Discharge instructions given to patient, Instructed on discharge instructions, follow up and referral plans. medication usage, Demonstrated understanding of instructions, follow-up care, medications, Prescriptions given X 2, 05:05 Patient left the ED. tm6 Signatures: Marco Martinez PA PA cp Vicente, Ronaldo, RN RN [facility] Marlen Gagnon RN RN tm6
--- NOTE | 2023-11-27 04:50 | EDPHYS ---
Physician Documentation [facility] Name: Marquita Gannon Age: 28 yrs Sex: Female : 1995 Arrival Date: 11/27/2023 Time: 03:17 Bed 5 Private MD: ED Physician Marco Gresham HPI: 11/27 03:50 This 28 yrs old Female presents to ER via Ambulatory with complaints of Fever, cp Flu Symptoms. 03:50 The patient reports fever, with an emergency department temperature of 101.1 degrees cp Fahrenheit. 03:50 Onset: The symptoms/episode began/occurred 2 day(s) ago. cp 03:50 Associated signs and symptoms: Pertinent positives: chest pain, cough, headache, sore cp throat, body aches. Severity of symptoms: in the emergency department the symptoms are unchanged despite home interventions. Historical: - Allergies: 03:30 No Known Allergies; tm6 - PMHx: 03:30 None; tm6 - PSHx: 03:30 None; tm6 - Immunization history:: Adult Immunizations up to date, Client reports receiving the 1st dose of the Covid vaccine, Flu vaccine is not up to date. - Social history:: Smoking status: Patient denies any tobacco usage or history of. Patient uses alcohol, occasionally. Patient/guardian denies using street drugs. ROS: 04:00 Constitutional: Positive for body aches, chills, fever, cp 04:00 Eyes: Negative for injury, pain, redness, and discharge, cp 04:00 ENT: Positive for sore throat, Negative for drainage from ear(s), ear pain, difficulty swallowing, difficulty handling secretions, 04:00 Neck: Negative for pain with movement, pain at rest, stiffness, 04:00 Cardiovascular: Positive for chest pain, with cough, 04:00 Respiratory: Positive for cough, with no reported sputum, 04:00 Abdomen/GI: Negative for vomiting, diarrhea, constipation, 04:00 : Negative for urinary symptoms, 04:00 Neuro: Positive for headache, Negative for altered mental status, 04:00 All other systems are negative, Exam: 04:05 Constitutional: The patient appears in no acute distress, alert, awake, non-toxic, well cp developed, well nourished, obese, 04:05 Head/Face: Normocephalic, atraumatic. cp 04:05 Eyes: Periorbital structures: appear normal, Conjunctiva: normal, no exudate, no injection, Sclera: no appreciated abnormality, Lids and lashes: appear normal, bilaterally, 04:05 ENT: External ear(s): are unremarkable, Ear canal(s): are normal, clear, TM's: dullness, bilaterally, Nose: is normal, Mouth: Lips: moist, Oral mucosa: moist, Posterior pharynx: Airway: no evidence of obstruction, patent, Tonsils: no enlargement, no exudate, erythema, that is mild, exudate, is not appreciated, 04:05 Neck: ROM/movement: limited range of motion, is not appreciated, Meningeal signs: are not present, nuchal rigidity, is not appreciated, 04:05 Chest/axilla: Inspection: normal, 04:05 Cardiovascular: Rate: normal, Rhythm: regular, 04:05 Respiratory: the patient does not display signs of respiratory distress, Respirations: normal, no use of accessory muscles, Breath sounds: decreased breath sounds, are not appreciated, stridor, is not appreciated, + upper airway congestion. wheezing: is not appreciated, 04:05 Abdomen/GI: Exam negative for discomfort, distension, guarding, Inspection: abdomen appears normal, 04:05 Back: CVA tenderness, is absent, Vital Signs: 03:27 BP 125 / 83; Pulse 95; Resp 18; Temp 101.1(O); Pulse Ox 99% on R/A; Weight 122.47 kg; tm6 Height 5 ft. 4 in. ; Pain 8/10; 04:46 Pulse 88; Temp 100.6(O); Pulse Ox 98% on R/A; tm6 03:27 Body Mass Index 46.34 (122.47 kg, 162.56 cm) tm6 03:27 Pain Scale: Adult tm6 MDM: 03:34 Patient medically screened. cp 04:00 Differential diagnosis: viral Infection, bacterial infection, URI, bronchitis, cp pneumonia gastroenteritis, meningitis. 04:50 Data reviewed: vital signs, nurses notes, lab test result(s). cp 04:50 I considered the following discharge prescriptions or medication management in the emergency department Medications were administered in the Emergency Department. See MAR. Counseling: I had a detailed discussion with the patient and/or guardian regarding the historical points, exam findings, and any diagnostic results supporting the discharge/admit diagnosis, lab results, to return to the emergency department if symptoms worsen or persist or if there are any questions or concerns that arise at home. Response to treatment: the patient's symptoms have mildly improved after treatment, and as a result, I will discharge patient. 11/27 03:41 Order name: SARS RAPID; Complete Time: 04:32 cp 11/27 04:32 Interpretation: Reviewed. cp 11/27 03:41 Order name: Influenza Screen (a \T\ B) cp 11/27 03:41 Order name: Strep cp 11/27 04:51 Order name: Throat Culture EDMS Administered Medications: 03:53 Drug: Ibuprofen PO 800 mg PO once Route: PO; rv Disposition Summary: 11/27/23 04:50 Discharge Ordered Notes: Location: Home cp Problem: new cp Symptoms: have improved cp Condition: Stable cp Diagnosis - Influenza due to other identified influenza virus with other respiratory cp manifestations Followup: cp - With: Private Physician - When: 2 - 3 days - Reason: Worsening of condition Discharge Instructions: - Discharge Summary Sheet cp - Influenza, Adult cp Forms: - Medication Reconciliation Form cp - Thank You Letter cp - Antibiotic Education cp - Prescription Opioid Use cp - Patient Portal Instructions cp - Leadership Thank You Letter cp - Work release form tm6 Prescriptions: - Bromfed DM 2-30-10 mg/5 mL Oral syrup - administer 10 milliliter ORAL route 4 times per day as needed for cold cp symptoms; 240 milliliter; Refills: 0, Product Selection Permitted - Ibuprofen 800 mg Oral Tablet - take 1 tablet ORAL route every 8 hours As needed take with food; 30 tablet; cp Refills: 0, Product Selection Permitted Signatures: Dispatcher [employer] EDMO Marco Martinez PA PA cp Andrew Lim RN RN rv Marlen Gganon RN RN tm6 Corrections: (The following items were deleted from the chart) 11/28 01:51 11/27 03:50 Onset: The symptoms/episode began/occurred 3 day(s) ago, cp cp
[2023-11-27 05:15] VITALS: BP 125/83; TEMP 100.6; O2SAT 98
== END ==
LOC: ER 03:17
DX: J10.1 Influenza due to other identified influenza virus with other respiratory manifestations (principal); Z11.52 Encounter for screening for COVID-19
CPT/HCPCS: 36415; 87070; 87081; 87804; 87811; 99283